=== PATIENT | male | born 1975 | race Caucasian/White ===

== ENCOUNTER 2018-08-04 08:51 | Emergency (ER) | payer MEDICAID, SELFPAY ==
[2018-08-04 09:02] VITALS: BP 150/86; PULSE 65; RESP 16; TEMP 36.5; O2SAT 99
[2018-08-04 09:06] LABS: Bilirubin Negative (Negative); Blood Moderate (Negative); Clarity Clear; Glucose 500 mg/dL (Negative); Ketones Negative (Negative); Leukocyte Esterase Negative (Negative); Nitrite Negative (Negative); Specific Gravity 1.015 (1.005-1.025); Urobilinogen 0.2 EU/dL (Up TO 0.2); pH 5.5 (5-8)
--- NOTE | 2018-08-04 09:10 | DI.RAD_ITS ---
SYMPTOM/DIAGNOSIS: ? KIDNEY STONE, PAIN KUB: No priors. The right kidney is largely obscured by overlying bowel but no obvious renal stones are present. There is an ovoid, 4 mm. density projected over the left sacrum. This may represent a stone versus an osseous or enteric calcification. Tiny calcifications are seen in the pelvis. These may represent phleboliths. Distal ureteral or bladder stones cannot be excluded. The bones are intact. The bowel gas pattern is nonspecific. IMPRESSION: Equivocal examination as described above. Calcifications seen overlying the left sacrum and in the pelvis. While these may represent ureteral or bladder stones, phleboliths cannot be excluded. If there is continued concern, ultrasound or renal colic CT may be obtained. The findings were discussed with Dr Lamar of the ER on the date of the examination.
--- NOTE | 2018-08-04 09:17 | W.ED.GENAD ---
Discharge Plan Disposition Patient Disposition: HOME Condition: Good Discharge Details Chief Complaint: Urinary Clinical Impression: Hematuria, Urolithiasis Primary Care Provider: Brandi Green ED Provider: Ant Lamar Home Meds and New Rx's Prescriptions: New tamsulosin 0.4 mg capsule 0.4 mg PO DAILY Qty: 3 RF: 0 No Action loratadine 10 MG tablet,disintegrating 10 mg PO DAILY Qty: 1 RF: 0 metformin [Glucophage] 1,000 MG tablet 500 mg PO BID RF: 0 ranitidine HCl [Zantac] 150 MG tablet 150 mg PO PRN PRNRF: 0 ibuprofen 800 MG tablet 800 mg PO Q8H PRN PRNQty: 20 RF: 1 Discharge Instructions Instructions: Kidney Stones (ED), Hematuria (ED) Additional Instructions: Please take the tamsulosin once daily as directed, please use the strainer for your urine as directed. If you notice any worsening of your symptoms, or any new symptoms such as vomiting, diarrhea, fever, chills, shortness of breath, chest pain, numbness, weakness, or fainting , please return immediately to the emergency department for reevaluation. Please follow up with your primary care provider as soon as possible for reassessment and reevaluation. As always, it was a pleasure participating in your medical care today. Referrals: Brandi Green [Primary Care Provider] - Medical Decision Making This is a pleasant 43-year-old male with no significant past medical history who presents today for evaluation of hematuria and mild dysuria for the last day associated with a very mild bilateral flank pain. Right now the patient states that he is pain-free. His hematuria certainly did concern him. He had symptoms like this in the past when he had a urinary tract infection years ago. He denies any irritation to the urethra recently, he denies any blood thinner use. Exam demonstrates an unremarkable abdominal exam, nontender to bilaterally descended testicles, normal cremasteric reflex. No significant flank or CVA tenderness. Currently CT scan is unavailable for the next 7 hours, I do feel that the patient signs and symptoms are concerning for kidney stone versus mild UTI. Bedside ultrasound reveals no evidence of hydronephrosis of the kidneys. I did give the patient the option of transfer for CT scan of the abdomen however he would like to hold off for the time being. We will get plain film of the abdomen to evaluate for any large kidney stone. Urine and basic labs to evaluate for signs of significant infection. 10 AM Patient's laboratory work-up has returned, lab results are notably benign. No evidence of significant renal dysfunction, electrolyte abnormality, or other concern. We did order lipid panel and hemoglobin A1c as well as C-peptide and urine microalbumin, as were ordered outpatient. The patient was requesting these to be drawn here. We did discuss with him that this may cause a increase incurred cost, however the patient would like to only be drawn once, and is still requesting the labs. I did discuss the findings of his lipid panel as well as his A1c, as well as the importance of following up closely with his PCP in regards to this. Urinalysis does show signs of mild to moderate hematuria, nitrite negative, leukoesterase negative, signs and symptoms correlate well with mild hematuria, with no evidence of significant infection with no evidence of bacteria. X-ray of the abdomen per Dr. Sterling of radiology shows no significant concerning process, there are small calcifications noted in the pelvic region which may be evidence of small 4 mm stone. This would correlate well with his clinical picture and urinalysis. Signs and symptoms clinically correlate with mild urolithiasis. No clinical evidence of urinary tract infection requiring antibiotics or emergent urology evaluation. Pain is notably stable. We will give the patient a dose of tamsulosin here, recommend continued NSAIDs for home use, as well as prompt follow-up with his PCP. We discussed red flags which to return immediately, and the patient understands. I have extensively reviewed the treatment plan and discharge instructions with the patient and their family. I have addressed all patient concerns at this time. The patient and family was made aware of what symptoms to monitor for that would warrant a return to the emergency department. Discussed the plan with the patient and family, they demonstrate verbal understanding and agreement with our assessment and plan at this time. HPI General Date/Time Provider Initiated Documentation: 08/04/18 09:01. HPI Narrative: This is a 43-year-old male with no significant past medical history who presents today for evaluation of hematuria, mild urinary pain/dysuria, slight increase in urinary frequency. Patient states that symptoms began yesterday. Is a small amount of blood noted in his urine, there is been mild burning sensation with urinary movements. This morning he did notice a small amount of flank pain which he describes as bilateral, very mild and just aching in nature. Currently he denies any severe pain. He denies any abdominal pain, or pelvic pain. He denies any significant testicular pain. He does have a history of chronic testicular pain but states that this is not present today. He denies any evidence of hematospermia, recent exploration of the urethra during intercourse or other behaviors. He does state that he did have a urinary tract infection years ago which did have some mild hematuria at that time. He denies any history of kidney stones. He denies any family history of AAA, aortic dissection, recent abdominal surgeries. He has no other complaints at this time. She denies any other modifying factors. Past medical history is positive for diabetes mellitus. He is on no blood thinners. He denies any history family history of bladder cancer. Related Data Home Medications Medication Instructions Recorded Confirmed ibuprofen 800 mg PO Q8H PRN PRN #20 tablet 06/04/13 08/04/18 metformin [Glucophage] 500 mg PO BID 06/04/13 08/04/18 ranitidine HCl [Zantac] 150 mg PO PRN PRN 06/04/13 08/04/18 loratadine 10 mg PO DAILY #1 tab-cap 07/16/13 08/04/18 tamsulosin 0.4 mg PO DAILY #3 cap 08/04/18 Previous Rx's Medication Instructions Recorded ibuprofen 800 mg PO Q8H PRN PRN #20 tablet 06/04/13 tamsulosin 0.4 mg PO DAILY #3 cap 08/04/18 Allergies Allergy/AdvReac Type Severity Reaction Status Date / Time pseudoephedrine HCl Allergy Intermediate Unverified 08/04/18 09:11 [From Sudafed] naproxen AdvReac Mild Unverified 08/04/18 09:11 General Stated Complaint: Urinary DANIELA: 4 Review of Systems Review of Systems All systems reviewed & are unremarkable except as noted in HPI and below PFSH Social History Smoking/Tobacco Use Status: Never Drug use: Never Exam Narrative Exam Narrative: 1.Const: Well-nourished, Well-developed, appearing stated age 2.Eyes: PERRL, no conjunctival injection, and symmetrical lids. 3.ENT: Atraumatic external nose and ears. Moist MM. Neck: Symmetric, trachea midline, No thyromegaly. 4.CVS: +S1/S2, No murmurs or gallops. Peripheral pulses 2+ and equal in all extremities. Brisk capillary refill in all extremities. 5.RESP: Unlabored respiratory effort. Clear to auscultation bilaterally. No wheezes rales or rhonchi 6.GI: Soft, Nontender/Nondistended, No hepatosplenomegaly. No guarding or rebound. No significant flank or CVA tenderness. No pain at McBurney's point, negative Martin sign. Genital exam demonstrated bilaterally descended testicles, normal cremasteric reflex bilaterally. No testicular tenderness. No penile tenderness or discharge. Penis is circumcised. No evidence of hernia. 7.MSK: Normocephalic/Atraumatic, Extremities w/o deformity or ttp No cyanosis or clubbing, Normal movement of all extremities. 8.Skin: Warm, Dry. No rashes or lesions. 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 Sensation grossly intact, no focal neurologic deficits. 10.Psych: (AAO) x3. Appropriate mood and affect Course Vital Signs Temperature 36.5 C 08/04/18 09:02 Pulse 65 08/04/18 09:02 Respiratory Rate 16 08/04/18 09:02 Blood Pressure 150/86 H 08/04/18 09:02 Pulse Oximetry 99 08/04/18 09:02 Temperature 36.5 C 08/04/18 09:02 Temperature Source Skin 08/04/18 09:02 Pulse 65 08/04/18 09:02 Respiratory Rate 16 08/04/18 09:02 Respiratory Effort Non-Labored 08/04/18 09:02 Blood Pressure 150/86 H 08/04/18 09:02 Blood Pressure Position Sitting 08/04/18 09:02 Pulse Oximetry 99 08/04/18 09:02 Oxygen Delivery Method Room Air 08/04/18 09:02 Oxygen Flow Rate 0 08/04/18 09:02 Pain Level 1 08/04/18 09:02 Lab/Test Results Lab/Test Results: Laboratory Tests Range/Units 08/04/18 08:56 Urine Color (Yellow) Yellow Urine Clarity Clear Urine pH (5-8) 5.5 Ur Specific Warner (1.005-1.025) 1.015 Urine Protein (Negative) mg/dL Negative Urine Ketones (Negative) mg/dL Negative Urine Blood (Negative) Moderate H Urine Nitrite (Negative) Negative Urine Bilirubin (Negative) Negative Urine Urobilinogen (Up TO 0.2) EU/dL 0.2 Ur Leukocyte Esterase (Negative) Negative Urine Glucose (Negative) mg/dL 500 H
[2018-08-04 09:18] LABS: Bacteria Negative HPF (Negative); C & S Indicated? No; Casts Negative LPF (Negative); Crystals Negative HPF (Negative); Epithelial Cells Rare HPF (Negative); Mucus Negative (Negative); RBC 20-50 (0-2)
[2018-08-04 09:36] LABS: Absolute Monocyte Count 0.32 k/cumm (0.11-0.7); HCT 46.9 % (40.0-50.0); HGB 16.3 g/dL (13.5-17.5); Mean Corp. HGB Concentration 34.8 g/dL (32.0-36.0); Mean Corpuscular Hemoglobin 27.2 pg (27.0-33.0); Mean Corpuscular Volume 78.3 fL (80-95); Mean Platelet Volume 9.9 fL (8.0-11.0); Platelet Count 219 x1000/uL (130-400); RBC 5.99 m/cumm (4.50-6.00); RBC Distribution Width 14.9 % (11.8-14.1); White Blood Cell Count 4.56 k/cumm (4.4-10.8)
[2018-08-04 09:44] LABS: Anion Gap 10.6 mmol/L (3-11); BUN 14 mg/dL (7-18); CO2 27.4 mmol/L (21.0-32.0); CREATININE 0.86 mg/dL (0.70-1.30); Calcium 9.1 mg/dL (8.5-10.1); Chloride 99 mmol/L (98-107); Cholesterol 165 mg/dL (50-200); Glucose 252 mg/dL (70-100); HDL Cholesterol 32 mg/dL (40-60); LDL CHOLESTEROL 94 mg/dL (<100); Potassium 3.9 mmol/L (3.5-5.1); Sodium 137 mmol/L (136-145); Triglyceride 331 mg/dL (30-150)
[2018-08-04 09:48] LABS: Hemoglobin A1C 8.6 % (4.5-6.2)
[2018-08-04] MEDS: Acetaminophen 500 MG TAB (09:49)
[2018-08-04 10:04] LABS: Absolute Neutrophil Count 2.69 k/cumm (1.2-6.7)
[2018-08-04 10:05] LABS: Absolute Lymphocyte Count 1.41 k/cumm (1.2-3.4)
[2018-08-04 10:06] LABS: Diff Comment Manual Differential; RBC Morphology Normal
[2018-08-04] MEDS: Tamsulosin 0.4 MG CAPCR PO (10:08)
[2018-08-05 14:56] LABS: C-Peptide 4.2 ng/mL (1.1 - 4.4)
== END 2018-08-04 10:16 | disposition home or self-care (01) ==
PROVIDERS: Emergency Provider Student in an Organized Health Care Education/Training Program; PCP Family Medicine
DX: R31.9 Hematuria, unspecified (principal); N20.9 Urinary calculus, unspecified
CPT/HCPCS: 36415; 80048; 80061; 83721; 99284; 74018; 81003; 81015; 83036; 84681; 85025

== ENCOUNTER 2018-08-21 08:02 | Outpatient (CLI) | payer MEDICAID, SELFPAY ==
[2018-08-21 09:29] LABS: Anion Gap 11.2 mmol/L (3-11); BUN 19 mg/dL (7-18); CO2 24.8 mmol/L (21.0-32.0); CREATININE 0.88 mg/dL (0.70-1.30); Chloride 101 mmol/L (98-107); Cholesterol 169 mg/dL (50-200); Glucose 246 mg/dL (70-100); HDL Cholesterol 30 mg/dL (40-60); LDL CHOLESTEROL 101 mg/dL (<100); Potassium 4.4 mmol/L (3.5-5.1); Sodium 137 mmol/L (136-145); Triglyceride 277 mg/dL (30-150)
[2018-08-24 12:34] LABS: C-Peptide 4.3 ng/mL (1.1 - 4.4)
== END 2018-08-21 08:22 ==
PROVIDERS: PCP Family Medicine; Visit Provider Internal Medicine Endocrinology, Diabetes & Metabolism
DX: E11.65 Type 2 diabetes mellitus with hyperglycemia (principal); E78.2 Mixed hyperlipidemia
CPT/HCPCS: 36415; 80048; 80061; 83721; 82043; 82570; 84681

== ENCOUNTER 2018-11-28 09:34 | Outpatient (CLI) | payer MEDICAID, SELFPAY ==
[2018-11-29 10:25] LABS: Hemoglobin A1C 7.7 % (4.5-6.2)
[2018-11-30 16:20] LABS: Fructosamine 261 mcmol/L (200 - 285)
== END 2018-11-28 09:54 ==
PROVIDERS: PCP Family Medicine; Visit Provider Internal Medicine Endocrinology, Diabetes & Metabolism
DX: E11.65 Type 2 diabetes mellitus with hyperglycemia (principal)
CPT/HCPCS: 36415; 82985; 83036

== ENCOUNTER 2019-05-20 08:15 | Outpatient (CLI) | payer MEDICAID, SELFPAY ==
[2019-05-20 10:31] LABS: Hemoglobin A1C 8.5 % (3.8-5.6)
[2019-05-21 16:56] LABS: Fructosamine 301 mcmol/L (200 - 285)
== END 2019-05-20 08:35 ==
PROVIDERS: PCP Family Medicine; Visit Provider Internal Medicine Endocrinology, Diabetes & Metabolism
DX: E11.65 Type 2 diabetes mellitus with hyperglycemia (principal)
CPT/HCPCS: 36415; 82985; 83036

== ENCOUNTER 2020-04-06 03:08 | Outpatient (CLI) | payer MEDICAID, SELFPAY ==
[2020-04-06 08:18] LABS: Hemoglobin A1C 9.6 % (<5.7)
[2020-04-08 09:27] LABS: Fructosamine 334 mcmol/L (200 - 285)
== END 2020-04-06 03:28 ==
PROVIDERS: PCP Family Medicine; Visit Provider Internal Medicine Endocrinology, Diabetes & Metabolism
DX: E11.65 Type 2 diabetes mellitus with hyperglycemia (principal)
CPT/HCPCS: 36415; 82985; 83036

== ENCOUNTER 2020-07-21 21:21 | Observation (INO) | payer MEDICAID, SELFPAY ==
[2020-07-21] VITALS (13 sets, daily range): BP systolic 144–173; BP diastolic 76–95; PULSE 74–86; RESP 16–28; TEMP 36.4–36.7; O2SAT 95–99
--- NOTE | 2020-07-21 21:25 | ED.GENADUL_ITS ---
Discharge Plan Disposition Patient Disposition: [facility] INPATIENT Condition: Stable Discharge Details Primary Care Provider: Brandi Green ED Provider: Galina Sosa Home Meds and New Rx's Prescriptions: No Action loratadine 10 MG tablet,disintegrating 10 mg PO DAILY Qty: 1 RF: 0 metformin [Glucophage] 1,000 MG tablet 1,000 mg PO BID RF: 0 ibuprofen 800 MG tablet 800 mg PO Q8H PRN PRNQty: 20 RF: 1 glipizide 10 mg tablet extended release 24hr 10 mg PO DAILY AM RF: 0 Lantus Solostar U-100 Insulin 100 unit/mL (3 mL) insulin pen 50 unit SUBCUT HS RF: 0 Medical Decision Making Patient is a pleasant 45 year old male who presents for evaluation after possibly taking an extra dose of is glipizide. He states that he takes 10mg of extended release glipizide in the morning and thinks he may have taken another this evening. Reports BGL 307 at home prior to arrival. No symptoms at this time. Contacted poison control. They are concerned for potential hypoglycemia and advised over night admission with Q1hr checks. Advised to treat as needed. If patient needs multiple treatments for his hypoglycemia may consider octreotide. Patient denies any symptoms at this time. Exam is normal. His current glucose is 250. Consulted with Dr. Charles who agrees to admission. Patient will be placed in the ICU given the frequency of glucose check. Baseline labs were obtained significant for glucose of 271. Patient is in agreement with admission. All his questions and HPI General Mode of arrival: ambulatory . Date/Time Provider Initiated Documentation: 07/21/20 21:22 . Limitations to Documentation: no limitations . Information obtained by: patient and RN notes reviewed . History of Present Illness 45 year old M presents to the emergency department with the chief complaint of accidentally took extra dose of ER glipizide, Patient started experiencing this hour(s) (1999) Patient notes no other symptoms.. Patient did receive the following treatments prior to arrival, none Related Data Home Medications Medication Instructions Recorded Confirmed ibuprofen 800 mg PO Q8H PRN PRN #20 tablet 06/04/13 07/21/20 metformin [Glucophage] 1,000 mg PO BID 06/04/13 07/21/20 loratadine 10 mg PO DAILY #1 tab-cap 04/11/14 04/16/21 glipizide 10 mg PO DAILY AM 07/21/20 07/21/20 insulin glargine [Lantus Solostar 50 unit SUBCUT HS 07/21/20 07/21/20 U-100 Insulin] Previous Rx's Medication Instructions Recorded ibuprofen 800 mg PO Q8H PRN PRN #20 tablet 06/04/13 Allergies Allergy/AdvReac Type Severity Reaction Status Date / Time pseudoephedrine HCl Allergy Intermediate Unverified 08/04/18 09:11 [From Sudafed] naproxen AdvReac Mild Unverified 08/04/18 09:11 General DANIELA: 4 Review of Systems Constitutional Constitutional: Reports as per HPI, Denies chills, Denies fever(s) and Denies headache(s) ENT Ears, Nose, Mouth, and Throat: Denies headache(s) Cardiovascular Cardiovascular: Reports as per HPI, Denies chest pain and Denies dyspnea Respiratory Respiratory: Reports as per HPI, Denies cough and Denies dyspnea Neurologic Neurologic: Denies headache(s) [facility] Social History Smoking/Tobacco Use Status: Never Smoking risk assessment performed?: Yes Alcohol Intake: never Drug use: Never Do you feel safe at home: Yes Do you feel safe in your relationship?: Yes Exam Const General: cooperative, healthy appearing, comfortable and no acute distress Nutritional Appearance: well nourished and obese Orientation: alert and awake Resp Effort & Inspection: normal respiratory effort, able to speak in complete sentences and no respiratory distress Auscultation: clear to auscultation bilaterally Cardio Rate: regular rate Rhythm: regular rhythm Heart Sounds: S1 normal and S2 normal Skin General skin exam: no rashes or lesions noted Neuro General: patient alert and patient awake Cognition: normal cognition Speech: speech normal Gait: normal gait Psych Appearance: grossly normal and well kempt Mental Status: mental status grossly normal Speech and Movement: speech and movement normal
[2020-07-21 21:56] LABS: Abs Immature Grans 0.08 10^3/uL (0.0-0.06); Absolute Basophil Count 0.05 10^3/uL (0.0-0.2); Absolute Eosinophil Count 0.17 10^3/uL (0.0-0.7); Absolute Lymphocyte Count 1.95 10^3/uL (1.2-3.4); Absolute Monocyte Count 0.37 10^3/uL (0.1-0.8); Absolute Neutrophil Count 3.36 10^3/uL (1.2-6.7); Basophils % 0.8; Eosinophils % 2.8; HCT 47.6 % (40.0-50.0); HGB 16.1 g/dL (13.5-17.5); Immature Grans % 1.3; Lymphocytes % 32.6; MCH 27.1 pg (27.0-33.0); MCHC 33.8 % (32.0-36.0); MPV 9.8 fL (8.0-11.0); Monocytes % 6.2; Neutrophils % 56.3; Nucleated RBC 0 %; Platelet Count 221 10^3/uL (130-400); RBC 5.95 10^6/uL (4.36-5.78); RDW-SD 40.2 fL; WBC 5.98 10^3/uL (4.4-10.8)
[2020-07-21 22:11] LABS: ALT 49 U/L (16-63); AST 17 U/L (15-37); Albumin 3.9 g/dL (3.4-5.0); Alkaline Phosphatase 102 U/L (46-116); BUN 19 mg/dL (7-18); Bilirubin, Total 0.5 mg/dL (0.2-1.0); CREATININE 0.9 mg/dL (0.70-1.30); Calcium 9.4 mg/dL (8.5-10.1); Chloride 102 mmol/L (98-107); Glucose 271 mg/dL (74-106); Potassium 4.1 mmol/L (3.5-5.1); Sodium 138 mmol/L (136-145); Total Protein 7.3 g/dL (6.4-8.2)
[2020-07-21 22:13] LABS: Source Nasal/Nares
[2020-07-22] VITALS (12 sets, daily range): BP systolic 139–172; BP diastolic 80–92; PULSE 77–90; RESP 13–24; TEMP 36.5–36.7; O2SAT 92–98
--- NOTE | 2020-07-22 00:36 | HPE_ITS ---
Date of service: 07/22/20 Time of Service: 00:36 Assessment and Plan Assessment and plan (1) Accidental medication overdose: Status: Acute Assessment and plan: Inadvertent ingestion of one extra dose of glipizide ER 10 mg. Patient is clinically stable and probably could have been monitored at home w/ self glucose checks and monitoring by his spouse. Patient's autonomic nervous system is still sensitive to symptoms of hypoglycemia and it would be highly unlikely that he would not be able to manage this. However, since poison control has been called twice on his case and they have advised overnight monitoring w/ serial glucose readings, the patient will be observed overnight. Peak effect for extended release glipizide is 8 to 12 hr. Qualifiers: Encounter type: initial encounter Qualified Code(s): T50.901A - Poisoning by unspecified drugs, medicaments and biological substances, accidental (unintentional), initial encounter (2) Diabetes mellitus type 2, controlled, without complications: Status: Acute Assessment and plan: serial glucose monitoring; hold all diabetic meds while hospitalized overnight. 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 male w/ type 2 DM w/ poor control (latest A1C 9.6%) who took an extra glipizide ER 10 mg around 8 pm (he usually takes his medicine in the a.m.). He has been having arthritic pains in his toes (bunions) and though that it was his ibuprofen. He called poison control who advised him to come to the ER for evaluation. His glucose at home prior to arriving in the ER was 307 mg/dL. Galina Sosa from the ER called poison control and because of concern for potential hypoglycemia at home, they advised overnight hospitalization for q1h glucose checks and if significant hypoglycemia developes to treat w/ octreotide. Patient states that he has had DM for 5 or 6 yrs and has not had a hypoglycemia spell for over 2 yrs. He states that in fact his PCP has had trouble controlling his elevated glucose and he has been referred to a diabetic specialist at [facility] in [facility] [place]. He says that he can recognized when his glucose goes low as he will feel sweaty and nervous. The last time this happened was over two years ago when his glucose got down in the 60's at night. His DM is currently being treated w/ glipizide ER 10 mg daily, metformin 1000 mg bid and Lantus 50 units qHS. He has had no complications from his DM so far. Review of Systems All systems reviewed & are unremarkable except as noted in HPI and below Constitutional Constitutional: Reports as per HPI Eyes Eyes: Reports system reviewed and no additional complaints, except as documented ENT Ears, Nose, Mouth, and Throat: Reports system reviewed and no additional complaints, except as documented Cardiovascular Cardiovascular: Reports system reviewed and no additional complaints, except as documented Respiratory Respiratory: Reports system reviewed and no additional complaints, except as documented Gastrointestinal Gastrointestinal: Reports system reviewed and no additional complaints, except as documented Genitourinary Genitourinary: Reports system reviewed and no additional complaints, except as documented Musculoskeletal Musculoskeletal: Reports system reviewed and no additional complaints, except as documented Integumentary/Breasts Skin/Breast: Reports system reviewed and no additional complaints, except as documented Neurologic Neurologic: Reports system reviewed and no additional complaints, except as documented Endocrine Endocrine: Reports system reviewed and no additional complaints, except as documented Hematologic/Lymphatic Hematologic/Lymphatic: Reports system reviewed and no additional complaints, except as documented Allergic/Immunologic Allergic/Immunologic: Reports system reviewed and no additional complaints, except as documented [facility] Medical History (Updated 07/22/20 @ 08:33 by Gideon Long) Diabetes mellitus type 2, controlled, without complications Family History (Updated 07/22/20 @ 08:27 by Gideon Long) Father Diabetes Heart disease in his early 50's d/t [place] Mother Diabetes Sister Diabetes Social History Smoking/Tobacco Use Status: Never Smoking risk assessment performed?: Yes Alcohol Intake: never Drug use: Never Do you feel safe at home: Yes Do you feel safe in your relationship?: Yes Meds Allergies and Home Medications Allergies Allergy/AdvReac Type Severity Reaction Status Date / Time pseudoephedrine HCl Allergy Intermediate Unverified 08/04/18 09:11 [From Sudafed] naproxen AdvReac Mild Unverified 08/04/18 09:11 Home Medications Medication Instructions Recorded Confirmed Type ibuprofen 800 mg PO Q8H PRN PRN #20 tablet 06/04/13 07/21/20 Rx metformin [Glucophage] 1,000 mg PO BID 06/04/13 07/21/20 History loratadine 10 mg PO DAILY #1 tab-cap 07/16/13 07/21/20 History glipizide 10 mg PO DAILY AM 07/21/20 07/21/20 History insulin glargine [Lantus Solostar 50 unit SUBCUT HS 07/21/20 07/21/20 History U-100 Insulin] Exam Narrative Exam Narrative: Obese white male lying in bed in semi-morgan position; no distress; pleasant and alert and oriented x 3 HEENT unremarkable Neck supple w/out JVD, LN, or thyromegaly; normal carotid pulses Lungs are clear to auscultation and percussion Heart is regular rate and rhythm w/out murmur, rub or gallops, PMI is at apex and w/out thrill Abdomen is obese, soft, nontender w/out organomegaly, bruits Extremities w/out edema; normal pedal pulses; there is a paucity of hair over dorsum of his feet Neuro exam is grossly intact w/ normal motor and grossly normal sensory exam ( I did not test for fine vibratory nor fine sensory w/ monofilament) Rectal and genitalia exam was deferred and not clinically indicated. Skin is w/out rashes Results Labs Result diagrams: 07/21/20 21:50 07/22/20 06:30 Labs: Laboratory Results - last 24 hr 07/21/20 07/21/20 07/21/20 21:50 21:50 22:10 WBC 5.98 RBC 5.95 H Hgb 16.1 Hct 47.6 MCV 80.0 MCH 27.1 MCHC 33.8 RDW 14.0 Plt Count 221 MPV 9.8 Immature Gran % 1.3 Neutrophils % 56.3 Lymphocytes % 32.6 Monocytes % 6.2 Eosinophils % 2.8 Basophils % 0.8 Nucleated RBC % 0 Absolute Neutrophils 3.36 Absolute Lymphocytes 1.95 Absolute Monocytes 0.37 Absolute Eosinophils 0.17 Absolute Basophils 0.05 Sodium 138 Potassium 4.1 Chloride 102 Carbon Dioxide 26.0 Anion Gap 10.0 BUN 19 H Creatinine 0.9 Estimated GFR/1.73 m2 >= 60.00 Glucose 271 H Calcium 9.4 Total Bilirubin 0.5 AST 17 ALT 49 Alkaline Phosphatase 102 Total Protein 7.3 Albumin 3.9 COVID-19 Source Nasal/nares Last Vital Signs Temp 36.4 C L 07/21/20 23:03 Pulse 80 07/22/20 00:01 Resp 13 07/22/20 00:01 BP 139/92 H 07/22/20 00:01 Pulse Ox 96 07/22/20 00:01 COVID-19 Screening Have you, or household traveled for leisure in last 14 days?: No Had IN PERSON contact w/suspected or confirmed C-19 person: No
[2020-07-22 06:56] LABS: Anion Gap 11.7 mmol/L (3-11); BUN 17 mg/dL (7-18); CO2 23.3 mmol/L (21.0-32.0); CREATININE 0.8 mg/dL (0.70-1.30); Calcium 8.8 mg/dL (8.5-10.1); Chloride 104 mmol/L (98-107); Glucose 225 mg/dL (74-106); Potassium 3.8 mmol/L (3.5-5.1); Sodium 139 mmol/L (136-145)
--- NOTE | 2020-07-22 08:42 | PDOC.CMIN ---
- If Service Date Differs Date of service: 07/22/20 Time of Service: 08:42 Care Management Initial Assess REASON FOR HOSPITALIZATION:: accidental medication overdose PAST MEDICAL HISTORY/PAST SURGICAL HISTORY:: Medical History (Updated 07/22/20 @ 08:33 by Gideon Long). Diabetes mellitus type 2, controlled, without complications PREVIOUS FUNCTIONAL STATUS/SOCIAL/FAMILY SUPPORTS:: Silverio lives in [place], [place] with his Renee. ADVANCE DIRECTIVES:: none on file Has patient been provided with info about the portal/API?: Yes Did the patient sign up for the portal?: Yes (previously) CODE STATUS:: Full Code INSURANCE COVERAGE / FINANCIAL ISSUES:: Medicaid PRIMARY CARE PHYSICIAN:: Brandi Green POTENTIAL DISCHARGE NEEDS:: follow up with PCP and plan of care PATIENT/FAMILY EDUCATION NEEDS:: Review of discharge instructions including activity, medications and follow up, limitations, Ask Me Three TRANSPORTATION:: via private vehicle with family PLAN:: Silverio will be discharged home with no new services. He will follow up with his PCP and plan of care and transport with family.
--- NOTE | 2020-07-22 08:46 | DSE_ITS ---
Date of service: 07/22/20 Time of Service: 08:46 DS: Diagnosis Discharge Diagnosis (1) Accidental medication overdose: Status: Resolved (2) Diabetes mellitus type 2, controlled, without complications: Status: Acute Discharge Plan Disposition Patient Disposition: HOME Condition: Stable Discharge Details Reason For Visit: GLYPIZIDE OVERDOSE Admit Date/Time: 07/21/20 22:00 Admit Provider: Gideon Long Attending Provider: Gideon Long Primary Care Provider: Brandi Green Hospital Course Hospital Course: See admission H&P for details. Patient inadvertently took an extra dose of glipizide ER 10 mg around 8 pm on the day of admission and was advised by poison control to come to the ER for evaluation. ER staff called poison control and they advised overnight hospitalization w/ serial glucose monitoring q1h. Blood glucose prior to arrival was 307 and finger stick glucose in the ER department was 250 w/ a lab drawn glucose of 271. Overnight he had no hypoglycemia spells. His lowest glucose was 159 mg/dL at 02:35 am for which he had a snack of peanut butter and sohail crackers. His subsequent glucose has been 192 to 213. He has eaten breakfast and has no symptoms of hypoglycemia. He is advised to not take his metformin or his glipizide this morning but may resume his evening dose of Lantus tonight. Home Meds and New Rx's Prescriptions: Continued loratadine 10 MG tablet,disintegrating 10 mg PO DAILY Qty: 1 RF: 0 metformin [Glucophage] 1,000 MG tablet 1,000 mg PO BID RF: 0 ibuprofen 800 MG tablet 800 mg PO Q8H PRN PRNQty: 20 RF: 1 glipizide 10 mg tablet extended release 24hr 10 mg PO DAILY AM RF: 0 Lantus Solostar U-100 Insulin 100 unit/mL (3 mL) insulin pen 50 unit SUBCUT HS RF: 0 Discharge Instructions Instructions: Hypoglycemia in a Person with Diabetes (DC) Additional Instructions: Do not take your glipizide today and do not take your metformin this morning. Continue to monitor your glucose readings throughout the day (a minimum of every 4 to 6h). You may resume your Lantus tonight and resume your metformin and glipizide tomorrow. Activity:: Activity as Tolerated Equipment/Supplies:: No Equipment Needed Diet:: Carb Counting Discharge Orders Discharge Orders: Discharge Order (Routine); Ordered 07/22/20 Ordered By: Gideon Long Discharge Data Discharge Date/Time-TO BE ENTERED AT DEPARTURE: 07/22/20 08:38 DS: Summary Time Spent with Patient providing and/or coordinating discharge services: Less than 30 minutes Specific discharge activities: discussion of glucose monitoring and how to handle hypoglycemia Status at Discharge Functional status at discharge: independent ambulation Overall status at discharge: patient is back to baseline Mental Status: mental status grossly normal Speech and Movement: speech and movement normal Mood: congruent mood Affect: normal affect Exam Narrative Exam Narrative: Obese white male lying in bed in semi-morgan position; no distress; pleasant and alert and oriented x 3 HEENT unremarkable Neck supple w/out JVD, LN, or thyromegaly; normal carotid pulses Lungs are clear to auscultation and percussion Heart is regular rate and rhythm w/out murmur, rub or gallops, PMI is at apex and w/out thrill Abdomen is obese, soft, nontender w/out organomegaly, bruits Extremities w/out edema; normal pedal pulses; there is a paucity of hair over dorsum of his feet Neuro exam is grossly intact w/ normal motor and grossly normal sensory exam ( I did not test for fine vibratory nor fine sensory w/ monofilament) Rectal and genitalia exam was deferred and not clinically indicated. Skin is w/out rashes Psych Mental Status: mental status grossly normal Speech and Movement: speech and movement normal Mood: congruent mood Affect: normal affect DS: Data Vitals/I&O Vitals and I&O: Vital Signs Temperature 36.5 C 07/22/20 07:30 Temperature Source Temporal Artery Scan 07/22/20 07:30 Pulse 80 07/22/20 07:32 Pulse 77 07/22/20 07:32 Respiratory Rate 17 07/22/20 07:32 Respiratory Effort 07/22/20 07:30 Respiratory Depth Normal 07/22/20 07:30 Respiratory Pattern Normal 07/22/20 07:30 Blood Pressure 150/80 H 07/22/20 07:32 Blood Pressure Mean 99 07/22/20 07:32 Blood Pressure Position Supine 07/22/20 07:30 Pulse Oximetry 96 07/22/20 07:32 Oxygen Delivery Method Room Air 07/22/20 07:30 Oxygen Flow Rate 0 07/22/20 07:30 Pain Level 0 07/22/20 08:39 Intake & Output 07/21/20 07/21/20 07/22/20 11:59 23:59 11:59 Intake Total 280 / 280 Output Total 800 / 800 Balance -520 / -520 Weight 115.666 kg 117.7 kg Intake: Oral 280 / 280 Output: Urine 800 / 800 Other: Urine Color Yellow Urine Appearance Clear Urine Odor Normal Comment using urinal at bedside Voiding Methods Urinal Data Completed and Pending Labs on day of discharge: Labs from last 24 hours 07/22/20 07/21/20 07/21/20 06:30 22:10 21:50 WBC 5.98 RBC 5.95 H Hgb 16.1 Hct 47.6 MCV 80.0 MCH 27.1 MCHC 33.8 RDW 14.0 Plt Count 221 MPV 9.8 Immature Gran % 1.3 Neutrophils % 56.3 Lymphocytes % 32.6 Monocytes % 6.2 Eosinophils % 2.8 Basophils % 0.8 Nucleated RBC % 0 Absolute Neutrophils 3.36 Absolute Lymphocytes 1.95 Absolute Monocytes 0.37 Absolute Eosinophils 0.17 Absolute Basophils 0.05 Sodium 139 Potassium 3.8 Chloride 104 Carbon Dioxide 23.3 Anion Gap 11.7 H BUN 17 Creatinine 0.8 Estimated GFR/1.73 m2 >= 60.00 Glucose 225 H Calcium 8.8 Total Bilirubin AST ALT Alkaline Phosphatase Total Protein Albumin COVID-19 Source Nasal/nares SARS-CoV-2 (PCR) Pending 07/21/20 21:50 WBC RBC Hgb Hct MCV MCH MCHC RDW Plt Count MPV Immature Gran % Neutrophils % Lymphocytes % Monocytes % Eosinophils % Basophils % Nucleated RBC % Absolute Neutrophils Absolute Lymphocytes Absolute Monocytes Absolute Eosinophils Absolute Basophils Sodium 138 Potassium 4.1 Chloride 102 Carbon Dioxide 26.0 Anion Gap 10.0 BUN 19 H Creatinine 0.9 Estimated GFR/1.73 m2 >= 60.00 Glucose 271 H Calcium 9.4 Total Bilirubin 0.5 AST 17 ALT 49 Alkaline Phosphatase 102 Total Protein 7.3 Albumin 3.9 COVID-19 Source SARS-CoV-2 (PCR) [facility] Medical History (Updated 07/22/20 @ 08:46 by Gideon Long) Diabetes mellitus type 2, controlled, without complications Family History (Updated 07/22/20 @ 08:27 by Gideon Stranathan) Father Diabetes Heart disease in his early 50's d/t [place] Mother Diabetes Sister Diabetes Social History Smoking/Tobacco Use Status: Never Smoking risk assessment performed?: Yes Alcohol Intake: never Drug use: Never Do you feel safe at home: Yes Do you feel safe in your relationship?: Yes
--- NOTE | 2020-07-22 16:15 | CMPROGNOTE_ITS ---
- If Service Date Differs Date of service: 07/22/20 Time of Service: 16:15 Care Management Progress Note Sam is a 45 year old man admitted to [facility] on 07/21/20 due to an accidental overdose of glipizide. He was monitored closely in the ICU and was discharged early this morning shortly after 8:30 am. He will follow up with his PCP and discharge plan of care. Silverio transported home via priavte vehicle with his .
[2020-07-22 23:03] LABS: COVID-19 PCR Negative (Negative)
== END 2020-07-22 08:38 | disposition home or self-care (01) ==
LOC: ER 22:48 → ICU 22:54
PROVIDERS: Admitting Provider Internal Medicine; Emergency Provider Physician Assistant; PCP Family Medicine; Visit Provider Internal Medicine
DX: T38.3X1A Poisoning by insulin and oral hypoglycemic [antidiabetic] drugs, accidental (unintentional), initial encounter (principal); Y92.009 Unspecified place in unspecified non-institutional (private) residence as the place of occurrence of the external cause; E11.9 Type 2 diabetes mellitus without complications; Z79.4 Long term (current) use of insulin
CPT/HCPCS: 36415; 36416; 80048; 80053; 82962; 87635; 99218; 99238; 99285; 85025; 99235; 99284; G0378

== ENCOUNTER 2020-08-29 03:24 | Outpatient (CLI) | payer MEDICAID, SELFPAY ==
[2020-08-29 10:13] LABS: ALT 50 U/L (16-63); AST 20 U/L (15-37); Albumin 3.8 g/dL (3.4-5.0); Alkaline Phosphatase 96 U/L (46-116); Anion Gap 7.8 mmol/L (3-11); BUN 13 mg/dL (7-18); Bilirubin, Total 0.6 mg/dL (0.2-1.0); CO2 28.2 mmol/L (21.0-32.0); CREATININE 0.8 mg/dL (0.70-1.30); Calcium 8.8 mg/dL (8.5-10.1); Chloride 103 mmol/L (98-107); Cholesterol 173 mg/dL (<200); Glucose 265 mg/dL (74-106); HDL Cholesterol 25 mg/dL (40-60); Potassium 4.5 mmol/L (3.5-5.1); Sodium 139 mmol/L (136-145); TSH 1.93 uIU/mL (0.36-3.74); Total Protein 6.9 g/dL (6.4-8.2); Triglyceride 459 mg/dL (<150)
[2020-08-29 10:26] LABS: LDL CHOLESTEROL 83 mg/dL (<100)
== END 2020-08-29 03:25 | disposition home or self-care (01) ==
LOC: LBO 03:24
PROVIDERS: PCP Family Medicine; Visit Provider Internal Medicine Endocrinology, Diabetes & Metabolism
DX: E11.65 Type 2 diabetes mellitus with hyperglycemia (principal); E78.2 Mixed hyperlipidemia
CPT/HCPCS: 36415; 80053; 80061; 83721; 83036; 84443

== ENCOUNTER 2021-06-07 04:21 | Outpatient (CLI) | payer MEDICAID, SELFPAY ==
[2021-06-07 09:00] LABS: Hemoglobin A1C 9.3 % (<5.7)
[2021-06-07 09:51] LABS: COMMENT (LAB VIEW ONLY) 91.31 mg/dL
[2021-06-07 10:00] LABS: ALT 50 U/L (16-63); AST 17 U/L (15-37); Alkaline Phosphatase 92 U/L (46-116); Anion Gap 8.2 mmol/L (3-11); BUN 14 mg/dL (7-18); Bilirubin, Total 0.6 mg/dL (0.2-1.0); CO2 25.8 mmol/L (21.0-32.0); CREATININE 0.8 mg/dL (0.70-1.30); Calculated LDL 69 mg/dL (<100); Chloride 103 mmol/L (98-107); Cholesterol 175 mg/dL (<200); Glucose 244 mg/dL (74-106); HDL Cholesterol 32 mg/dL (40-60); Potassium 4.6 mmol/L (3.5-5.1); Sodium 137 mmol/L (136-145); TSH 1.31 uIU/mL (0.36-3.74); Total Protein 7.1 g/dL (6.4-8.2); Triglyceride 374 mg/dL (<150)
== END 2021-06-07 04:22 | disposition home or self-care (01) ==
LOC: LBO 04:21
PROVIDERS: PCP Family Medicine; Visit Provider Internal Medicine Endocrinology, Diabetes & Metabolism
DX: E11.65 Type 2 diabetes mellitus with hyperglycemia (principal); E78.2 Mixed hyperlipidemia
CPT/HCPCS: 36415; 80053; 80061; 82043; 82570; 83036; 84443

== ENCOUNTER 2021-06-09 09:48 | Emergency (ER) | payer MEDICAID, SELFPAY ==
[2021-06-09 10:20] VITALS: BP 162/92; PULSE 73; RESP 16; TEMP 36.5; O2SAT 98
--- NOTE | 2021-06-09 10:30 | DI.CT_ITS ---
Exam(s) CT HEAD WO EXAM: CT HEAD WO CLINICAL HISTORY: fall/ head injury. TECHNIQUE: Imaging Protocol: Axial computed tomography images with coronal and sagittal reformatted images were created and reviewed COMPARISON: No exams were available for comparison FINDINGS: The ventricular system is normal in appearance. No evidence of acute intracranial hemorrhage, mass effect, or midline shift. The orbital structures are unremarkable. The temporal bone structures appear intact. Calvarium: Normal. Visualized Paranasal sinuses/Mastoids: Clear. IMPRESSION: Normal cranial CT. RADIATION DOSE DELIVERED: 786.23mGy.cm Total DLP 786.23mGy.cm Total DLP !Error CTDIvol DATA REPOSITORY: All CT scans at this facility are submitted to the National Radiology Data Registry (NRDR) Dose Index Registry (DIR) with the [employer] (ACR). RADIATION OPTIMIZATION: All CT scans at this facility use at least one of these dose optimization te chniques: automated exposure control; mA and/or kV adjustment per patient size (includes targeted exa ms where dose is matched to clinical indication); or iterative reconstruction.
--- NOTE | 2021-06-09 11:28 | DI.VRAD_ITS ---
PROCEDURE INFORMATION: Exam: CT Head Without Contrast Exam date and time: 06/09/2021 10:46 AM Age: 45 years old Clinical indication: Injury or trauma; Fall; Blunt trauma (contusions or hematomas); Without loss of consciousness TECHNIQUE: Imaging protocol: Computed tomography of the head without contrast. COMPARISON: No relevant prior studies available. FINDINGS: Brain: No intracranial hemorrhage, mass effect, midline shift, or extra-axial collection. No acute territorial infarct. Cerebral ventricles: No ventriculomegaly. Paranasal sinuses: There is opacification of a single posterior right ethmoid air cell. The remainder of the visualized paranasal sinuses are well aerated. Mastoid air cells: The mastoid air cells are clear bilaterally. Bones/joints: Unremarkable. No depressed calvarial fracture. Soft tissues: Unremarkable. IMPRESSION: No acute intracranial abnormality. No intracranial hemorrhage or depressed calvarial fracture. Dictated and Authenticated by: Mi Sahni MD. Ordering:TRACEY Burns MD
--- NOTE | 2021-06-09 11:49 | ED.GENADUL_ITS ---
Discharge Plan Disposition Patient Disposition: HOME Condition: Stable Discharge Details Clinical Impression: Post-concussion syndrome Primary Care Provider: Brandi Green ED Provider: Grant Headley Home Meds and New Rx's Prescriptions: Continued loratadine 10 MG tablet,disintegrating 10 mg PO DAILY Qty: 1 0RF metformin [Glucophage] 1,000 MG tablet 1,000 mg PO BID 0RF ibuprofen 800 MG tablet 800 mg PO Q8H PRN PRNQty: 20 1RF glipizide 10 mg tablet extended release 24hr 10 mg PO DAILY AM 0RF Label Comments: TAKE 1 TABLET BY MOUTH EVERY DAY Lantus Solostar U-100 Insulin 100 unit/mL (3 mL) insulin pen 50 unit SUBCUT HS 0RF Label Comments: INJECT 60 UNITS SUBCUTANEOUSLY ONCE DAILY MAXIMUM OF 80 UNITS PER DAY Discharge Instructions Instructions: Concussion (ED), Post Concussion Syndrome (ED) Additional Instructions: It is very important that you rest over the next 3 days and then slowly increase your activity as tolerated by headache or symptoms. If you are not improving in the next week please follow-up with your primary care provider for reassessment and if you notice any significant worsening of symptoms including focal neurological symptoms such as numbness or tingling, arm weakness, severe headache, or vomiting you should return immediately to the emergency department for reassessment. Referrals: Brandi Green [Primary Care Provider] - (As needed for reassessment and if not improving) Discharge Data Discharge Date/Time-TO BE ENTERED AT DEPARTURE: 06/09/21 12:06 Medical Decision Making Patient reports fall with head injury 1 week ago. Patient initially improved then started having worsening symptoms of headache and lightheadedness over the last 3 days. Patient denies any focal neurological deficits slurred speech severe drowsiness or other symptoms. Physical exam is unremarkable and cranial nerve exam along with extremities are unremarkable for specific findings. Given recurrence and worsening of symptoms plan to do radiological imaging of the head given acute head injury but otherwise suspect postconcussive syndrome if no findings are noted. CT imaging shows no acute findings noted so I feel that patient is okay to have conservative outpatient management and follow-up with primary care as needed. Discussed with patient both physical and brain rest over the next 3 days and then to increase activity as tolerated. After discussion of diagnosis and plan of care patient has no further needs, questions, or concerns and states clear understanding to return to the emergency department for any worsening symptoms. HPI General Mode of arrival: ambulatory . Date/Time Provider Initiated Documentation: 06/09/21 10:03 . Limitations to Documentation: no limitations . Information obtained by: patient . History of Present Illness 45 year old M presents to the emergency department with the chief complaint of fall with head injury , described as mild, with intensity rated at 1. Quality is described as aching, and is localized to the head. Patient reports no radiation. Patient started experiencing this week(s) (1) and it has been constant. improves with Rest improves symptom(s), Other factors that worsen symptoms (Activity) . Patient notes denies nausea/vomiting, syncope and weakness. Patient did receive the following treatments prior to arrival, NSAID Related Data Home Medications Medication Instructions Recorded Confirmed ibuprofen 800 mg tablet 800 mg PO Q8H PRN PRN #20 tablet 06/04/13 06/09/21 metformin 1,000 mg tablet 1,000 mg PO BID 06/04/13 06/09/21 (Glucophage) loratadine 10 mg disintegrating 10 mg PO DAILY #1 tab-cap 07/16/13 06/09/21 tablet glipizide 10 mg tablet, extended 10 mg PO DAILY AM 07/21/20 06/09/21 release 24 hr insulin glargine 100 unit/mL (3 50 unit SUBCUT HS 07/21/20 06/09/21 mL) subcutaneous pen (Lantus Solostar U-100 Insulin) Previous Rx's Medication Instructions Recorded ibuprofen 800 mg tablet 800 mg PO Q8H PRN PRN #20 tablet 06/04/13 Allergies Allergy/AdvReac Type Severity Reaction Status Date / Time pseudoephedrine HCl Allergy Intermediate Unverified 06/09/21 10:24 [From Dirk] naproxen AdvReac Mild Unverified 06/09/21 10:24 General Stated Complaint: HeadInjury DANIELA: 3 Review of Systems Constitutional Constitutional: Denies body ache(s), Denies chills, Denies daytime sleepiness, Denies fever(s) and Reports headache(s) Eyes Eyes: Denies change in vision ENT Ears, Nose, Mouth, and Throat: Denies vertigo and Reports headache(s) Cardiovascular Cardiovascular: Denies chest pain, Denies syncope and Reports lightheadedness (Intermittent) Respiratory Respiratory: Reports system reviewed and no additional complaints, except as documented Gastrointestinal Gastrointestinal: Reports nausea and Reports vomiting Neurologic Neurologic: Reports as per HPI, Denies vertigo, Denies syncope, Reports h eadache(s), Denies localized weakness, Denies memory loss and Denies sensory deficit Psychiatric Psychiatric: Denies memory loss PFSH All Active Problems Post-concussion syndrome (Acute) Diabetes mellitus type 2, controlled, without complications (Acute) Family History Father Diabetes Heart disease in his early 50's d/t [place] Mother Diabetes Sister Diabetes Social History Smoking/Tobacco Use Status: Never Smoking risk assessment performed?: Yes Alcohol Intake: never Drug use: Never Substance use type: does not use Do you feel safe at home: Yes Do you feel safe in your relationship?: Yes Exam Const General: cooperative, healthy appearing, no acute distress and well groomed Orientation: alert, awake and oriented x3 HENMT Head: normal to inspection Ears: hearing grossly normal bilaterally and TM's normal bilaterally Mouth: oral mucosae normal and moist mucous membranes Throat: posterior oropharynx normal Eyes Visual Andres: normal visual andres by confrontation Alignment and Position: alignment normal Periorbital: periorbital findings normal Eyelids: eyelids normal Sclera: sclerae normal Cornea: corneas normal Pupils: PERRL EOM: EOM intact bilaterally Neck Neck: normal visual inspection, full ROM and no meningeal signs Resp Effort & Inspection: normal respiratory effort and able to speak in complete sentences Auscultation: clear to auscultation bilaterally Cardio Rate: regular rate Rhythm: regular rhythm Heart Sounds: S1 normal and S2 normal Neuro General: patient alert, patient awake, patient oriented x3, gait normal, tone normal, moves all extremities, CN's II-XI intact bilaterally and not confused Cognition: normal cognition Speech: speech normal Motor: muscle tone normal throughout, strength 5/5 throughout, no pronator drift, no movement abnormalities noted and no fasciculations Sensory Exam: no sensory deficits noted Coordination: Does not sway with eyes open Course Vital Signs Vital signs: Vital Signs Temperature 36.5 C 06/09/21 10:20 Pulse 73 03/05/22 10:20 Respiratory Rate 16 06/09/21 10:20 Blood Pressure 162/92 H 06/09/21 10:20 Pulse Oximetry 98 06/09/21 10:20 Temperature 36.5 C 06/09/21 10:20 Temperature Source Skin 06/09/21 10:20 Pulse 73 06/09/21 10:20 Respiratory Rate 16 06/09/21 10:20 Respiratory Effort Non-Labored 06/09/21 10:52 Respiratory Depth Normal 06/09/21 10:52 Respiratory Pattern Normal 06/09/21 10:52 Blood Pressure 162/92 H 06/09/21 10:20 Blood Pressure Position Sitting 06/09/21 10:20 Pulse Oximetry 98 06/09/21 10:20 Oxygen Delivery Method Room Air 06/09/21 10:20 Oxygen Flow Rate 0 06/09/21 10:20 Pain Level 1 06/09/21 10:20
[2021-06-09 12:00] VITALS: BP 148/87; PULSE 80; TEMP 36.6; O2SAT 97
[2021-06-09 12:04] VITALS: BP 148/87; PULSE 80; RESP 16; TEMP 36.6; O2SAT 97
== END 2021-06-09 12:06 | disposition home or self-care (01) ==
PROVIDERS: Emergency Provider Nurse Practitioner Family; PCP Family Medicine
DX: S09.8XXA Other specified injuries of head, initial encounter (principal); F07.81 Postconcussional syndrome; W00.0XXA Fall on same level due to ice and snow, initial encounter; R51.9 Headache, unspecified
CPT/HCPCS: 99284; 70450; 99283

== ENCOUNTER → 2022-02-07 02:19 | Outpatient (CLI) | payer MEDICAID, SELFPAY ==
--- NOTE | 2022-02-07 13:30 | DI.RAD_ITS ---
Exam(s) XR SHOULDER RT COMPLETE 2+V EXAM: XR SHOULDER RT COMPLETE 2+V CLINICAL HISTORY: RT SHOULDER JT PAIN, M25.511 TECHNIQUE: COMPARISON: No exams were available for comparison FINDINGS: Five views were obtained. There appears to be mild narrowing of the cartilaginous joint space of the glenohumeral joint. This is presumably on a degenerative basis. No other bony or soft tissue abnor mality seen. IMPRESSION: RADIATION DOSE DELIVERED: Total DLP
== END ==
PROVIDERS: PCP Family Medicine; Visit Provider Family Medicine
DX: M25.511 Pain in right shoulder (principal)
CPT/HCPCS: 73030

== ENCOUNTER 2022-05-30 08:17 | Day surgery (SDC) | payer BC, MEDICAID, SELFPAY ==
--- NOTE | 2022-05-29 21:18 | W.PM.DSUDISC ---
Date of service: 05/30/22 Time of Service: 10:16 Discharge Plan Disposition Patient Disposition: Home Condition: Good Discharge Details Reason For Visit: Screening colonoscopy Attending Provider: Daniel Sterling Primary Care Provider: Brian Bryson Home Meds and New Rx's Prescriptions: Continued Jardiance 10 mg tablet 10 mg PO DAILY loratadine 10 MG tablet,disintegrating 10 mg PO DAILY Qty: 1 fluticasone propionate 50 mcg/actuation spray,suspension 1 spray intranasal BID Rx Instructions: administer into each nostril ibuprofen 800 MG tablet 800 mg PO Q8H PRN PRNQty: 20 1RF glipizide 10 mg tablet extended release 24hr 10 mg PO DAILY AM Patient Comments: TAKE 1 TABLET BY MOUTH EVERY DAY insulin glargine [Lantus Solostar U-100 Insulin] 100 unit/mL (3 mL) insulin pen 50 unit SUBCUT HS Patient Comments: INJECT 60 UNITS SUBCUTANEOUSLY ONCE DAILY MAXIMUM OF 80 UNITS PER DAY Discontinued bisacodyl [Dulcolax (bisacodyl)] 5 mg tablet,delayed release (DR/EC) 5 mg PO ONCE Qty: 4 0RF Rx Instructions: Take according to provider's instructions for colonoscopy prep. polyethylene glycol 3350 17 gram/dose powder 17 g PO ONCE Qty: 238 0RF Rx Instructions: To be taken as directed by prescriber's office for colonoscopy prep. Discharge Instructions Instructions: Hemorrhoids (GEN), Colorectal Polyps (GEN) Additional Instructions: EJ, we were able to perform your colonoscopy without any difficulty today. As you mentioned, you have some very mild internal hemorrhoids. I would try to treat these with basic diet changes like staying well-hydrated, and maintaining a diet rich in fibers to avoid constipation. We will provide some information here on general hemorrhoid care. I found 1 polyp that was quite small. I removed it completely. I will let you know when I have the pathology report. 1. If tolerated, consume a soft, low fiber diet for 1-2 days. [address] Do not drive, drink alcohol, operate machinery, make critical decisions, or do activities that require coordination or balance for 24 hours. 3. Because air was put into your colon during the procedure, expelling air from your rectum (passing gas or farting) is normal. 4. You may not have a bowel movement for 1-3 days because of the colonoscopy prep. This is normal. 5. Go directly to the emergency room if you notice any of the following: Develop chills (warm to touch), or if you have a thermometer and your temperature is above 101 Difficulty breathing or difficultly swallowing Persistent vomiting Severe abdominal pain, other than gas cramps Severe chest pain Black, tarry stools Any bleeding ? exceeding one tablespoon 6. Call your physician if the site where your intravenous was started becomes red, swollen, painful, and warm to touch. 7. Your physician has reviewed your pre-procedure medications. Please continue to take those medications as previously ordered. You will be given specific information/education regarding any changes to your medications before leaving. Activity:: Activity as Tolerated Diet:: As Tolerated Discharge Orders Discharge Orders: Discharge Order (Routine); Ordered 05/29/22 Ordered By: Daniel Sterling DS: Diagnosis Discharge Diagnosis (1) Screening for colon cancer: Status: Acute Asessment and Plan: Follow-up on polypectomy results
--- NOTE | 2022-05-29 21:20 | W.COLOREPORT ---
Date of service: 05/30/22 Time of Service: 10:25 Colonoscopy Report Date of procedure: 05/30/22 Pre-op diagnosis general: Screening colonoscopy Procedure: Colonoscopy Surgeon: Daniel Sterling Anesthesia Type: General:No Airway Pathology: other (Colon polyp at 65 cm) Complications: None Disposition: same day Indications: Sam is 46 years old and he is undergoing his first screening colonoscopy Prep: Miralax/Dulcolax Procedure Start Time: 09:33 Procedure End Time: 09:55 Retraction Time: 12 Findings: Mild grade 1 internal hemorrhoids, colon polyp at 65 cm Procedure Description: After the induction of monitored anesthetic care, and with the patient in left lateral decubitus position, I began by performing an external anorectal exam.? Perineum and skin were normal, as was the anal verge.? There was no not evidence of external hemorrhoids.? Next, I performed a digital rectal exam.? I did appreciate any abnormal findings.? Next, I advanced a colonoscope into the rectal vault.? I performed retroflexion.? There were grade 1 internal hemorrhoids, mostly limited to a single column.? Using insufflation, I then advanced the colonoscope beyond the rectal folds and into the sigmoid colon before advancing towards the cecum.? The quality of the prep was excellent.? The scope was noted to be in the cecum by identification of the ileocecal valve and appendiceal orifice.? I then began withdrawing the colonoscope using repeated irrigation as necessary for full evaluation of the colonic mucosa. Around 65 cm from the anal verge I identified a 0.25 cm polyp. ?It appeared sessile in character. ?I was able to remove this with a cold forcep polypectomy. ?I examined the site, and there was minimal bleeding. ?Once this was completed, I continued to withdraw the scope and examine the remainder of the colonic mucosa.?Once the scope was withdrawn to the level of the rectum, great care was taken to examine portions of the rectal folds.? Finally, the scope was withdrawn and the patient was brought to the same-day surgery recovery unit as the anesthetic wore off. ?The findings and instructions were shared with the patient prior to discharge.
--- NOTE | 2022-05-30 06:30 | W.ANESPRE ---
General Info Date of Service Date Performed: 05/30/22 Height: 5 ft 8 in Weight: 107.955 kg Body Mass Index (BMI): 36.1 Surgical Procedure: Operation Date: 05/30/22 09:50 Proposed Procedure Side Surgeon carmen Sterling MD Meds Allergies and Home Medications Allergies Allergy/AdvReac Type Severity Reaction Status Date / Time pseudoephedrine HCl Allergy Intermediate Unverified 05/30/22 08:52 [From Sudafed] naproxen AdvReac Mild Unverified 05/30/22 08:52 Home Medication Medication Instructions Recorded ibuprofen 800 mg tablet 800 mg PO Q8H PRN PRN #20 tabs 06/04/13 loratadine 10 mg disintegrating 10 mg PO DAILY #1 tab-cap 07/16/13 tablet glipizide 10 mg tablet, extended 10 mg PO DAILY AM 07/21/20 release 24 hr insulin glargine 100 unit/mL (3 50 unit subcut HS 07/21/20 mL) subcutaneous pen (Lantus Solostar U-100 Insulin) fluticasone propionate 50 1 spray intranasal BID 02/07/22 mcg/actuation nasal spray,suspension empagliflozin 10 mg tablet 10 mg PO DAILY 05/16/22 (Jardiance) Current Visit Medications: Current Medications Generic Name Dose Route Start Last Admin Trade Name Freq PRN Reason Stop Dose Admin Hyoscyamine Sulfate 0.125 mg 05/29/22 21:21 Hyoscyamine 0.125 Mg Sl/Oral/Chew SL DIRECTED PRN Ringer's Solution 1,000 mls @ 80 mls/hr 05/30/22 06:00 IV 06/28/22 23:59 INF[facility]ION [facility] IV Miscellaneous Supplies 1 each 05/30/22 06:00 Iv Access IV 06/28/22 23:59 DIRECTED RASHAD Ondansetron HCl 4 mg 05/29/22 21:21 Ondansetron 4 Mg/2 Ml Vial IVP Q4H PRN PRN Nausea / Vomiting Sodium Chloride 0 ml 05/30/22 06:00 Normal Saline Flush 10 Ml Syr IV 06/28/22 23:59 PRN PRN Sodium Chloride 0 ml 05/30/22 06:00 Normal Saline 10 Ml Vial IJ 06/28/22 23:59 DIRECTED PRN Sterile Water 0 ml 05/30/22 06:00 Water,Injection,Sterile 10 Ml Vial IJ 06/28/22 23:59 DIRECTED PRN PFSH Active Problems Active Problems: Problem Status Onset Code Diabetes mellitus type 2, controlled, without complications E11.9 Screening for colon cancer Z12.11 Epidermoid cyst L72.0 Surgical History Surgical History [place] teeth extracted Tobacco Smoking/Tobacco Use Status: Never Alcohol Alcohol Intake: current Alcohol intake frequency: a few times a month Substance Use Substance use: Never Substance use type: does not use Vital Signs and Lab Results Lab Results Blood Type / Crossmatch: No Data to Display Complete Blood Count: No Data to Display Complete Metabolic Panel: No Data to Display Liver Function Panel: No Data to Display Coagulation Panel: No Data to Display Cardiac Panel: No Data to Display Arterial Blood Gas: No Data to Display Venous Blood Gas: No Data to Display Pancreas Panel: No Data to Display Thyroid Panel: No Data to Display Infectious Disease: No Data to Display Blood Cultures: No Data to Display Toxicology Panel: No Data to Display Anesthesia Assessment and Plan Anesthesia History Personal History: No History of Anesthesia Complications Family History: No Family History of Anesthesia Complications Exercise Tolerance Exercise Tolerance: Metabolic Equivalents>4 Pertinent Negatives Pertinent Negatives: No Symptoms of GERD Cardiac & Pulmonary Exam Cardiac Exam: Normal S1/S2 Heart Sounds Pulmonary Exam: Clear Bilateral Breath Sounds Implantable Cardiac Device Does patient have a Pacemaker or an ICD?: No Airway Exam Known Difficult Airway: No Mallampati Class: 2 Mouth Opening: Normal (> 3cm) Thyromental Distance: Greater than 3 cm Neck Range of Motion: Full ROM Neck Circumference: Normal Teeth Condition: Normal Dentition ASA Classification ASA Score: ASA 2 Emergency Case?: No NPO Status NPO Status: NPO Clears >2 hours, Solids >8 hours Anesthesia Plan Resuscitation Status: Full Code Anesthesia Technique: General Anesthesia Airway Planned: Natural Airway Monitors Used: Standard Monitors
[2022-05-30 08:35] VITALS: BP 148/109; PULSE 71; RESP 16; TEMP 36.2; O2SAT 97
[2022-05-30] MEDS: Lactated Ringers 1,000 ML 80 ML IV (09:00)
[2022-05-30 09:08] VITALS: BMI 36.1
[2022-05-30 09:26] VITALS: BP 134/74; PULSE 73
--- NOTE | 2022-05-30 09:50 | BOWEL_PTH ---
PATIENT: Hien Corley LOC: [facility] U#:[id number] AGE/SX: 46/M ROOM: RE05/30/[address]: Daniel Sterling MD : 1975 BED: DIS: 05/30/2022 SPEC #: [id number] RECD: 05/30/22 12:51 STATUS: JACOB RE #: [id number] SULEMAN: 05/30/22 09:[address]: Daniel Sterling DEPT: Surgical Specimen RECD BY: Judy Rizzo ENTERED: 05/30/22 12:51 SP TYPE: Bowel OTHR DR: Brian Bryson Tissues: 1 - BIOPSY BOWEL Procedures: GROSS AND MICRO LEVEL 4 Comments: [id number]
[2022-05-30 10:00] VITALS: BP 127/75; PULSE 71; RESP 17; TEMP 36.4; O2SAT 97
--- NOTE | 2022-05-30 10:14 | W.ANESPOSTOP ---
Postoperative Evaluation Date, Time and Location Date Performed: 05/30/22 Time Performed: 10:14 Patient Location: Day Surgery Unit Vital Signs Most Recent Imported Vital Signs: Most Recent Vital Signs Temp Pulse Resp BP Pulse Ox 36.4 C L 71 17 127/75 97 05/30/22 10:00 05/30/22 10:00 05/30/22 10:00 05/30/22 10:00 05/30/22 10:00 Pain Score Most Recent Pain Score: Most Recent Pain Score Pain Level 0 05/30/22 10:00 Assessment Mental Status: Awake (Alert & Oriented to Patient Baseline) Airway and Respiratory Function: Patent airway with normal (patient baseline) respiratory exam Cardiovascular Function: Hemodynamically Stable Hydration Status: Adequately Hydrated Nausea & Vomiting: No Nausea or Vomiting Pain: Pt. Denies Any Pain Peripheral Nerve Block: Patient did not receive a nerve block
[2022-05-30 10:31] VITALS: BP 161/79; PULSE 72; RESP 17; TEMP 36.4; O2SAT 99
== END 2022-05-30 10:45 | disposition home or self-care (01) ==
LOC: SUR 08:18
PROVIDERS: PCP Family Medicine; Visit Provider Surgery
PROC: 0DJD8ZZ Inspection of Lower Intestinal Tract, Via Natural or Artificial Opening Endoscopic (ICD-10-PCS; CPT 45378; principal; 2022-05-30 09:45)
DX: Z12.11 Encounter for screening for malignant neoplasm of colon (principal); K64.0 First degree hemorrhoids; K63.5 Polyp of colon
CPT/HCPCS: 45380; 88305

== ENCOUNTER 2022-09-20 02:54 | Outpatient (CLI) | payer BC, MEDICAID, SELFPAY ==
[2022-09-20 09:18] LABS: HCT 50.5 % (40.0-50.0); HGB 17.5 g/dL (13.5-17.5); MCH 27.5 pg (27.0-33.0); MCHC 34.7 % (32.0-36.0); MCV 79 fL (80-95); MPV 9.4 fL (8.0-11.0); Platelet Count 213 10^3/uL (130-400); RBC 6.37 10^6/uL (4.36-5.78); RDW 15.9 % (11.8-14.1); RDW-SD 42.3 fL; WBC 5.73 10^3/uL (4.4-10.8)
[2022-09-20 09:49] LABS: ALT 41 U/L (16-63); Albumin 3.9 g/dL (3.4-5.0); Alkaline Phosphatase 89 U/L (46-116); Anion Gap 12.3 mmol/L (3-11); BUN 17 mg/dL (7-18); Bilirubin, Total 0.5 mg/dL (0.2-1.0); CO2 20.7 mmol/L (21.0-32.0); CREATININE 0.9 mg/dL (0.70-1.30); Calcium 8.5 mg/dL (8.5-10.1); Chloride 104 mmol/L (98-107); Cholesterol 213 mg/dL (<200); Glucose 228 mg/dL (74-106); HDL Cholesterol 31 mg/dL (40-60); Potassium 4.2 mmol/L (3.5-5.1); Sodium 137 mmol/L (136-145); Total Protein 7.5 g/dL (6.4-8.2); Triglyceride 829 mg/dL (<150)
[2022-09-20 10:01] LABS: LDL CHOLESTEROL 78 mg/dL (<100)
[2022-09-20 10:35] LABS: AST 7 U/L (15-37)
== END 2022-09-20 02:55 | disposition home or self-care (01) ==
LOC: LBO 02:55
PROVIDERS: PCP Family Medicine; Visit Provider Family Medicine
DX: Z00.00 Encounter for general adult medical examination without abnormal findings (principal); E11.9 Type 2 diabetes mellitus without complications; E78.5 Hyperlipidemia, unspecified; E66.9 Obesity, unspecified
CPT/HCPCS: 36415; 80053; 80061; 83721; 85027

== ENCOUNTER 2023-05-21 16:40 | Outpatient (REF) | payer BC, SELFPAY ==
[2023-05-21 18:22] LABS: COMMENT (LAB VIEW ONLY) 51.51 mg/dL; Microalb ug/mg Crea 18.6 ug/mg Cr
== END 2023-05-21 16:41 | disposition home or self-care (01) ==
LOC: NCHCN 16:40
PROVIDERS: PCP Family Medicine; Referring Provider Family Medicine; Visit Provider Family Medicine
DX: E11.9 Type 2 diabetes mellitus without complications (principal)
CPT/HCPCS: 82043; 82570

== ENCOUNTER 2024-01-02 02:22 | Outpatient (CLI) | payer MEDICAID, SELFPAY ==
--- OUTSIDE RECORDS SUMMARY | 2024-01-02 02:25 | XMS_ITS | Encounter Summary ---
Author Organization [facility] [place] [address] Care Team Providers Care Refuse Driver Name Role Phone Jerome Carlin DO Primary Care Provider +1- [phone] Encounter Details Date Type Department Care Team (Late st Contact Info) Description 04/18/2016 11:00 AM EST Ext Surgery or Single Event [facility] [address] [place] [id number] Abdoul James Jr., MD [address] [facility] [place] [address] Chest pain, unspecified Social History Tobacco Use Types Packs/Day Years Used Date Smoking Tobacco: Never Assessed Sex and Gender Information Value Date Recorded Sex Assigned at Not on file Gender Identity Not on file Sexual Orientation Not on file documented as of this encounter Plan of Treatment Not on file documented as of this encounter Procedures Procedure Name Priority Date/Time Associated Diagnosis Comments ECG SCAN 04/18/2016 12:00 AM EST STRESS TEST, EXERCISE (TREADMILL) Routine 04/18/2016 documented in this encounter Results * Stress Test, Exercise (Treadmill) (04/18/2016) Anatomical Region Laterality Modality Other Narrative 04/18/2016 Exercise Stress Test- Final Report ?? Sam Corley : 1975 [facility], [address] [facility] [address] Primary Physician: ??Jerome Carlin ??Indication: chest pain Date: 04/18/2016 Summary: Max Exercise: ??7:00, 1:00 ??Stage III ??Thomas ?? 8 ?? METS Max HR: ? 171> 85 % PMR(151) Max BP: ??211/[address] change: ??none Reason for Termination: dyspnea, fatigue Impression: good exercise tolerance, no ischemia, low probability of obstructive coronary artery disease Details: Medication: no cardiac Risk Factors: ?? Family History, ??DM, Cholesterol Resting EKG: NSR 76, normal ?Resting BP: 141/82 Exercise per Thomas protocol Arrhythmias: none Recovery: ??BP ?? -> ?? 190/76 ?HR ?? -> 100 Arrhythmias: none Electronically signed: Abdoul James Jr, MD FAC ??Date: 04/18/2016 Historical Provider CARDIAC SERVICES ORDERABLES * SCAN DOC: ECG (04/18/2016 12:00 AM EST) Scanning Provider MEDIA MGR SCAN EXT O RDR/RSLT documented in this encounter Visit Diagnoses Diagnosis Chest pain, unspecified documented in this encounter Care Teams Refuse Driver Relationship Specialty Start Date End Date Jerome Carlin DO [address] [id number] PCP - General Family Medicine 04/18/16 documented as of this encounter
--- OUTSIDE RECORDS SUMMARY | 2024-01-02 02:25 | XMS_ITS | Encounter Summary ---
Author Organization [facility] Address [facility] [place] [address] Care Team Providers Care Furniture Technician Name Role Phone Jerome Carlin DO Primary Care Provider +1- [phone] Encounter Details Date Type Department Care Team (Latest Contact Info) Description 06/11/2016 - 06/11/2016 11:59 PM EST Hospital Encounter Radiology Library at [facility] [place] [address] José Luis Cardona MD [facility] [place] [address] Pain Discharge Disposition: Home Social History Tobacco Use Types Packs/Day Years Used Date Smoking Tobacco: Never Assessed Sex and Gender Information Value Date Recorded Sex Assigned at Not on file Gender Identity Not on file Sexual Orientation Not on file documented as of this encounter Plan of Treatment Not on file documented as of this encounter Procedures Procedure Name Priority Date/Time Associated Diagnosis Comments FILM LIBRARY STORAGE ONLY DX SPINE Routine 06/11/2016 12:00 AM EST Pain documented in this encounter Results * Film Library- Storage Only DX Spine (06/11/2016 12:00 AM EST) Narrative DAVID - 06/21/2016 5:00 PM EDT This exam is for storage only and is auto-finalizing. José Luis Cardona MD IMG FILM LIBRARY ORD ERABLES [place], [place] documented in this encounter Visit Diagnoses Diagnosis Pain Generalized pain documented in this encounter Care Teams Furniture Technician Relationship Specialty Start Date End Date Jerome Carlin DO [address] [phone] PCP - General Family Medicine 04/18/16 documented as of this encounter
--- OUTSIDE RECORDS SUMMARY | 2024-01-02 02:25 | XMS_ITS | Clinical Summary ---
Author Organization [facility] Address [address] [place] [address] Care Team Providers Care Groundman/Lineman Name Role Phone RaeganJerome daniel Primary Care Provider Social History Tobacco Use Types Packs/Day Years Used Date Smoking Tobacco: Never Assessed Sex and Gender Information Value Date Recorded Sex Assigned at Not on file Gender Identity Not on file Sexual Orientation Not on file Plan of Treatment Health Maintenance Due Date Last Done Comments Hepatitis C Screen 1975 Hepatitis B Vaccine (1 of 3 - 19+ 3-dose series) 07/01 COVID-19 Vaccine ( season) 2022 Care Teams Groundman/Lineman Relationship Specialty Start Date End Date Jerome Carlin DO [address] [place] [id number] PCP - General 01/02/16
--- OUTSIDE RECORDS SUMMARY | 2024-01-02 02:25 | XMS_ITS | Encounter Summary ---
Author Organization [facility] Address [facility] [place] [address] Care Team Providers Care Truck Packer Name Role Phone Jerome Soares DO Primary Care Provider +1- [phone] Reason for Visit * Reason Comments Back Pain * Consultation (Routine) - Closed Specialty Diagnoses / Procedures Referred By Contac t Referred To Contact Orthopaedics Diagnoses LBB from [facility] Jerome Soares, DO [address] [place] [address] [facility] [address] [place] [address] Referral ID Status Reason Start Date Expiration Date V isits Requested Visits Authorized [id number] Closed Connection Center 06/21/2016 06/21/2017 1 1 Encounter Details Date Type Department Care Team (Late st Contact Info) Description 07/04/2016 2:30 PM EDT Office [place] [address] Nato Plunkett PA [facility] [place] [address] Chronic midline low back pain without sciatica Social History Tobacco Use Types Packs/Day Years Used Date Smoking Tobacco: Never Smokeless Tobacco: Never Sex and Gender Information Value Date Recorded Sex Assigned at Not on file Gender Identity Not on file Sexual Orientation Not on file documented as of this encounter Last Filed Vital Signs Vital Sign Reading Time Taken Comments Blood Pressure 129/81 07/04/2016 2:34 PM EDT Pulse - - Temperature - - Respiratory Rate - - Oxygen Saturation - - Inhaled Oxygen Concentration - - Weight 108.9 kg (240 lb) 07/04/2016 2:34 PM EDT Height 172.7 cm (5' 8) 07/04/2016 2:34 PM EDT Body Mass Index 36.49 07/04/2016 2:34 PM EDT documented in this encounter Progress Notes * Nato Plunkett PA - 07/04/2016 2:30 PM EDT SUBJECTIVE: Sam Corley is a 41-year-old gentleman seen today at the request of Dr. Jerome Soares with a chief complaint of low back pain present over a chronic basis for several years. He mentions this pain comes rather intermittently without clear inciting incidents. At times he localizes some pain on the left testicular/groin area but otherwise denies any pain or thigh discomfort. Today, he mentions the pain is 2/10. The pain is generally located over the midline low back and does not appear to radiate otherwise. At times he mentions this diffuse left-sided numbness throughout his body that involves the circumferential left upper and left lower extremities, and at times perhaps involves the cheek. He otherwise does not really mention any focal deficits with his strength or sensation in the upper or lower extremities that occur over a more persistent basis. He notes some improvement when he is sitting, and at rest, and otherwise notes that the pain appears to bother him with standing, and lifting. He reports the pain is generally quite well tolerated and low-grade. At times he takes an pqup-you-umdebqv antiinflammatory, Naproxen 220 mg, but otherwise notes that his pain is generally low degree enough that he does not really require this medication. He mentions that the primary activities he is limited from doing is just lifting, but otherwise is able to do most of his activities day to day without much restrictions. Review of systems is negative for GI, , constitutional symptoms. He denies prior spine surgeries. He denies tobacco or alcohol use. 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 OBJECTIVE: This is a pleasant, obese, 41-year-old gentleman who appears his stated age and is in no acute distress. Height is 5 feet 8 inches, weight is 240 pounds, body mass index 36.6. His gait is normal. He performs toe walk and heel walk without much difficulty. Low back is unremarkable to inspection. He is nontender to palpation of the midline low back and over the bilateral buttocks. Lumbar flexion to about 70 degrees, lumbar extension to about 15 degrees without significant back or lower extremity symptoms at either end range. Sensory examination to light touch shows no focal deficits. Motor examination shows full strength of the lower extremities. Reflexes are +2 and symmetric at both knees and both ankles. Negative straight leg raising bilaterally. There is no clonus or Babinski. Painless hip range of motion without groin or thigh pain bilaterally. Palpable peripheral pulses. Plain x-rays of the lumbar spine with AP and lateral views were viewed today. In the AP view, there is no scoliosis, and lateral view shows no spondylolisthesis. There is some mild disk space narrowing of L3-L4, but otherwise some moderate disk space narrowing and facet arthropathy L4-L5, L5-S1. ASSESSMENT/PLAN: Sam Corley is a 41-year-old male with chronic low back pain. There is no logical examination that is entirely reassuring. He, at times, has these complaints of what almost appears to be an entire left-sided body numbness but otherwise does not really have any fixed motor or sensory deficits. His neurological examination as mentioned prior is entirely reassuring. His radiographs show some age-appropriate degenerative changes, particularly at the lowest lumbar levels where they are generally expected. His pain appears to be quite minimal, however, being only 2/10, and his Oswestry Disability index is only 4/100, indicating rather minimal disability. I discussed with Mr. Corley that given how well he appears to be doing, that invasive treatment is certainly not indicated at present and there is certainly no need for further imaging. I advised him that proceeding with activity as tolerated, and anti-inflammatory medications as needed would be more appropriate. He does live a distance away from us, and the pain appears to be well-controlled in general. I did talk with him instead about considering doing a home exercise program and I gave him the Treat Your Own Back book by Shantanu Soares with instructions to read it, as this provides instructions regarding the nature of chronic low back pain, and provides simple to follow self-directed exercise program that he can initiate on his own. I did advise him in the option of meeting formally with one of our physical therapists for 1 to 2 sessions, should he have inadequate relief with doing this on his own. Otherwise, we talked about the use of antiinflammatory medications, and I did talk to him about the option of taking diphenhydramine 25 mg at bedtime, if sleep becomes a problem, as this is similar from taking an Advil p.m. Otherwise, we will have him follow up on an as needed basis. documented in this encounter Plan of Treatment Not on file documented as of this encounter Visit Diagnoses Diagnosis Chronic midline low back pain without sciatica documented in this encounter Care Teams Truck Packer Relationship Specialty Start Date End Date Jerome Soares DO [address] [place] [address] PCP - General Family Medicine 04/18/16 documented as of this encounter
--- OUTSIDE RECORDS SUMMARY | 2024-01-02 02:25 | XMS_ITS | Clinical Summary ---
Author Organization [facility] [place] [address] Care Team Providers Care Store Sales Consultant Name Role Phone Jerome Carlin DO Primary Care Provider +1- [phone] Allergies Active Allergy Reactions Criticality Noted Date Comments Cis Free Text Allergy prescription pain killers. Pseudoephedrine Hcl Medications Medication Sig Dispensed Refills Start Date End Date Status metFORMIN (GLUCOPHAGE) 500 mg Tablet Take 500 mg by mouth 2 times daily (with meals). Active loratadine (CLARITIN) 10 mg Tablet Take 10 mg by mouth daily. Active naproxen sodium (ANAPROX) 220 mg Tablet Take 220 mg by mouth 2 times daily (with meals). Active Social History Tobacco Use Types Packs/Day Years Used Date Smoking Tobacco: Never Smokeless Tobacco: Never Sex and Gender Information Value Date Recorded Sex Assigned at Not on file Gender Identity Not on file Sexual Orientation Not on file Last Filed Vital Signs Vital Sign Reading Time Taken Comments Blood Pressure 129/81 07/04/2016 2:34 PM EDT Pulse - - Temperature - - Respiratory Rate - - Oxygen Saturation - - Inhaled Oxygen Concentration - - Weight 108.9 kg (240 lb) 07/04/2016 2:34 PM EDT Height 172.7 cm (5' 8) 07/04/2016 2:34 PM EDT Body Mass Index 36.49 07/04/2016 2:34 PM EDT Plan of Treatment Health Maintenance Due Date Last Done Comments CT Colonography 1975 Colonoscopy 1975 Colorectal Cancer Screening 1975 FIT DNA 1975 FIT 1975 Sigmoidoscopy (10 year) with FIT yearly 1975 Sigmoidoscopy 1975 HIV screen 07/02/1991 Hepatitis C Screening 07/02/1991 Lipid Screening 07/02/1991 Hepatitis B vaccine (0-59 yrs) (1) 1992 Tdap adult (Retired) 1992 Tetanus vaccine (Retired) 1992 Zoster vaccine (1 of 2) 07/02/2023 Covid-19 Vaccine (1 - 2022-24 season) 2023 Influenza (Flu) vaccine (1 o f 1 - Influenza standard series) 12/07/2023 Care Teams Store Sales Consultant Relationship Specialty Start Date End Date Jerome Carlin DO [address] [place], [place] [phone] PCP - General Family Medicine 04/18/16
--- OUTSIDE RECORDS SUMMARY | 2024-01-02 02:25 | XMS_ITS | Referral Summary ---
Author Organization [facility] Address [address] [place] [address] Care Team Providers Care Surveyor'S Assistant Name Role Phone Raegan Jerome Primary Care Provider Social History Tobacco Use Types Packs/Day Years Used Date Smoking Tobacco: Never Assessed Sex and Gender Information Value Date Recorded Sex Assigned at Not on file Gender Identity Not on file Sexual Orientation Not on file Plan of Treatment Not on file Care Teams Surveyor'S Assistant Relationship Specialty Start Date End Date Jerome Calrin DO [address] [place] [address] PCP - General 01/02/16
--- OUTSIDE RECORDS SUMMARY | 2024-01-02 02:25 | XMS_ITS | Encounter Summary ---
Author Organization [facility] Address [address] [place] [address] Care Team Providers Care Obstetric Anaesthetist Name Role Phone RaeganJerome barksdale Primary Care Provider Encounter Details Date Type Department Care Team (Late st Contact Info) Description 05/30/2022 Lab Requisition [facility] Pathology & Laboratory Medicine - [facility] [address] [place] [address] Daniel Sterling MD [address] [place] [address], [address] [place], [place] [address] Encounter for screening for malignant neoplasm of colon Social History Tobacco Use Types Packs/Day Years Used Date Smoking Tobacco: Never Assessed Sex and Gender Information Value Date Recorded Sex Assigned at Not on file Gender Identity Not on file Sexual Orientation Not on file documented as of this encounter Plan of Treatment Not on file documented as of this encounter Procedures Procedure Name Priority Date/Time Associated Diagnosis Comments SURGICAL PATHOLOGY Today 05/30/2022 9:50 EST Encounter for screening for malignant neoplasm of colon documented in this encounter Results * SURGICAL PATHOLOGY (05/30/2022 9:50 EST) Note to Patient The following pathology results have been interpreted by your pathologist and may be available to you before your health provider has had the opportunity to review them. Please allow time for your provider to receive these results and explore management options, if applicable. 06/03/2022 9:[address] [facility] Final Diagnosis A. COLON, 65 CM, POLYP, BIOPSY: - Tubular adenoma. 06/03/2022 9:21 [facility] Attestation There was significant resident/fellow involvement in the diagnostic evaluation of this case. By the signature below, the attending physician certifies that they have personally conducted a gross and/or microscopic examination of the described specimens and rendered or confirmed the above diagnosis. 06/03/2022 9:21 [facility] at 0921 Clinical History Screening colonoscopy; clinical diagnosis code: Z12.11 06/03/2022 9:21 [facility] Gross Description A. Received in formalin labelled with proper patient identification (initials N, D) and polyp at 65 cm is a álvarez-pink tissue measuring 0.5 x 0.3 x 0.1 cm. Submitted intact in A1. HILDA FOLEY(ASCP) 05/30/2022 19:14 06/03/2022 9:21 [facility] Resident/Shan w: Aaliyah Duggan MD 06/03/2022 9:21 [facility] Performing Lab [facility] 06/03/2022 9:21 [facility] Scanned Images 06/03/2022 9:21 [facility] Tissue ENTIRE COLON / Unknown 05/30/2022 9:50 EST 05/30/2022 16:53 EST Daniel Sterling MD PATHOLOGY ORDERABLES Performing Organization Address City/State/[facility] Co de Phone Number [facility] [address] [place] [phone] documented in this encounter Visit Diagnoses Diagnosis Encounter for screening for malignant neoplasm of colon Special screening for malignant neoplasms, colon documented in this encounter Care Teams Obstetric Anaesthetist Relationship Specialty Start Date End Date Jerome Carlin DO [address] [place] [address] PCP - General 01/02/16 documented as of this encounter
--- OUTSIDE RECORDS SUMMARY | 2024-01-02 02:26 | XMS_ITS | Encounter Summary ---
Author Organization [facility] Address [address] [place] [address] Care Team Providers Care Bread Room Hand Name Role Phone Jerome Carlin DO Primary Care Provider [phone] Encounter Details Date Type Department Care Team (Late st Contact Info) Description 01/03/[address] [facility] [phone] Jerome Carlin, DO [address] [place] [address] Social History Tobacco Use Types Packs/Day Years Used Date Smoking Tobacco: Never Assessed Sex and Gender Information Value Date Recorded Sex Assigned at Not on file Gender Identity Not on file Sexual Orientation Not on file documented as of this encounter Plan of Treatment Not on file documented as of this encounter Procedures Procedure Name Priority Date/Time Associated Diagnosis Comments MISCELLANEOUS TEST, OTHER Routine 01/03/2016 11:05 EDT documented in this encounter Results * MISCELLANEOUS TEST, OTHER (01/03/2016 11:05 EDT) Test Name SEMEN ANALYSIS W/STRICT MORPHOLOGY 01/03/2016 11:44 EDT [facility] Result See Pathology Scanned Report in PRISM. 01/05/2016 12:40 EDT [facility] Comment: (Note) Semen Analysis with Strict Morphology Semen Analysis Abstinence ? 4.0 d ? Collection Site Result: Referring Institution Study Type ? Semen ? Container Type ? 50 mL Conical ? Appearance ? Normal ? Semen Volume ? L 1.0 mL ? Reference: >=1.5 Motile/mL ? L 0.2 x10(6) ? Reference: >=6.0 Sperm/mL ? L 8.2 x10(6) ? Reference: >=15.0 Motility ? L 2 % ? Reference: >=40 Grade ?L 2.0 ? Reference: >=2.5 Motile/Ejaculate ?L 0.2 x10(6) ? Reference: >=9.0 Viscosity ? L 2.0 ? Reference: >=3.0 Agglutination ? 4.0 ? Reference: >=3.0 Supravital Stain ?L 14 % live ? Reference: >=58 Comment If reported, the specimen's appearance, volume, pH and viscosity were provided by referring personnel. Strict Criteria Sperm Morphology Strict Morph NL ?L 3.0 % ? Reference: >=4.5 Acrosom Defect ? 30.5 % ? Head Shape Abnormal ?7.0 % ? Head Size Abnormal ?0.5 % ? Midpiece Defect ?18.0 % ? Tail Defect ? 32.5 % ? Double Forms ? 8.0 % ? Multiple Defects ?0.5 % ? Germ Cells/mL ? 0.12 x10(6) ? Reference: <4.00 WBC/mL ?H 2.71 x10(6) ? Reference: <1.00 Elevated white blood cells in semen are of questionable clinical significance. RECEIVED: 01/04/2016 08:54 REPORTED: 01/04/2016 14:02 * Performing Site: [address] [place] [address] Material Crew Supervisor: Artem Winston II, M.D., Ph.D. TOPOGRAPHY UNKNOWN / Unknown 01/03/2016 11:05 EDT 01/03/2016 11:42 EDT Jerome Carlin DO CHEMISTRY & BLOOD GA S ORDERABLES Performing Organization Address City/State/[facility] Co de Phone Number [facility] [address] [place] [address] documented in this encounter Visit Diagnoses Not on filedocumented in this encounter Care Teams Bread Room Hand Relationship Specialty Start Date End Date Jerome Carlin DO [address] [place] [address] PCP - General 01/02/16 documented as of this encounter
[2024-01-02 11:28] LABS: Abs Immature Grans 0.08 10^3/uL (0.0-0.06); Absolute Basophil Count 0.05 10^3/uL (0.0-0.2); Absolute Eosinophil Count 0.07 10^3/uL (0.0-0.7); Absolute Lymphocyte Count 1.24 10^3/uL (1.2-3.4); Absolute Monocyte Count 0.34 10^3/uL (0.1-0.8); Absolute Neutrophil Count 2.81 10^3/uL (1.2-6.7); Basophils % 1.1 %; Eosinophils % 1.5 %; HCT 52.2 % (40.0-50.0); HGB 17.6 g/dL (13.5-17.5); Immature Grans % 1.7 %; MCH 27.6 pg (27.0-33.0); MCHC 33.7 % (32.0-36.0); MCV 82 fL (80-95); MPV 9.4 fL (8.0-11.0); Monocytes % 7.4 %; Neutrophils % 61.3 %; Platelet Count 203 10^3/uL (130-400); WBC 4.59 10^3/uL (4.4-10.8)
[2024-01-02 11:55] LABS: RBC 6.37 10^6/uL (4.36-5.78)
[2024-01-02 12:41] LABS: CO2 24.8 mmol/L (21.0-32.0)
[2024-01-02 12:57] LABS: ALT 37 U/L (16-63); AST 20 U/L (15-37); Albumin 3.9 g/dL (3.4-5.0); Alkaline Phosphatase 114 U/L (46-116); Anion Gap 10.2 mmol/L (3-11); BUN 20 mg/dL (7-18); Bilirubin, Direct 0.1 mg/dL (0.0-0.2); Calcium 9.4 mg/dL (8.5-10.1); Chloride 103 mmol/L (98-107); Estimated GFR 91.69 (mL/min/1.73m2); Glucose 252 mg/dL (74-106); Potassium 4.4 mmol/L (3.5-5.1); Sodium 138 mmol/L (136-145); Total Protein 7.5 g/dL (6.4-8.2)
== END 2024-01-02 02:23 | disposition home or self-care (01) ==
PROVIDERS: PCP Family Medicine; Visit Provider Family Medicine
DX: E78.5 Hyperlipidemia, unspecified (principal); E11.9 Type 2 diabetes mellitus without complications
CPT/HCPCS: 36415; 80053; 80076; 85025

== ENCOUNTER 2024-07-22 22:11 | Emergency (ER) | payer MEDICAID, SELFPAY ==
[2024-07-22 22:22] VITALS: BP 187/102; PULSE 86; RESP 18; TEMP 37.1; O2SAT 98
--- NOTE | 2024-07-22 22:39 | ED.GENADUL_ITS ---
Discharge Plan Disposition Patient Disposition: Home Condition: Good Discharge Details Clinical Impression: Hypoglycemia Primary Care Provider: Brian Bryson ED Provider: Ant Lamar Home Meds and New Rx's Prescriptions: No Action Jardiance 10 mg tablet 10 mg PO DAILY loratadine 10 MG tablet,disintegrating 10 mg PO DAILY Qty: 1 fluticasone propionate 50 mcg/actuation spray,suspension 1 spray intranasal BID Rx Instructions: administer into each nostril ibuprofen 800 MG tablet 800 mg PO Q8H PRN PRNQty: 20 1RF glipizide 10 mg tablet extended release 24hr 10 mg PO DAILY AM Patient Comments: TAKE 1 TABLET BY MOUTH EVERY DAY insulin glargine [Lantus Solostar U-100 Insulin] 100 unit/mL (3 mL) insulin pen 50 unit SUBCUT HS Patient Comments: INJECT 60 UNITS SUBCUTANEOUSLY ONCE DAILY MAXIMUM OF 80 UNITS PER DAY Discharge Instructions Instructions: Low blood sugar in people with diabetes Additional Instructions: At this time your blood sugar no longer shows any signs of hypoglycemia and has remained elevated. Please continue to monitor your diabetes closely, use the supplemental glucose additives as needed if you have a low blood sugar. Follow- up closely with your primary care provider for continued titration of your medications. If you notice any worsening of your symptoms, or any new symptoms such as vomiting, diarrhea, fever, chills, shortness of breath, chest pain, numbness, weakness, or fainting , please return immediately to the emergency dep artment for reevaluation. Please follow up with your primary care provider as soon as possible for reassessment and reevaluation. As always, it was a pleasure participating in your medical care today. Referrals: Brian Bryson MD [Primary Care Provider] - Discharge Data Discharge Date/Time-TO BE ENTERED AT DEPARTURE: 07/23/24 00:02 Discharge Physician: Ant Lamar HPI General Date/Time Provider Initiated Documentation: 07/22/24 22:13 . HPI Narrative: This is a pleasant 49-year-old male with a past medical history of type 2 diabetes, previous kidney stones, high cholesterol, who presents today fo r oscillating blood sugars. Patient is currently on 45 units of Lantus nightly, glipizide, Jentadueto (linagliptin/metformin), pioglitazone. He took his Lantus at 9 PM, and then at around 10 PM he noticed that he felt shaky and sweaty, his continuous glucose monitor demonstrated that his blood sugar was around 53. He then subsequently took 3 tablespoons of honey, 2 glucose tablets, and 1 large fluffy marshmallow. Over the next 15 to 20 minutes his symptoms resolved, but he came to the ER for further assessment. On recheck his blood sugar had come up to the 140s, and he was concerned that he may overshoot as well. Currently he states that he feels asymptomatic otherwise. No chest pain, shortness of breath, syncope, headache, vomiting or diarrhea. No dysuria or fever or chills. No other complaints at this time. He states that he has had some crashes in his blood sugar in the past, he actually had been taking a few more units of Lantus nightly, but they recently decreased because of these crashes. Related Data Home Medications ?Medication ?Instructions ?Recorded ?Confirmed ibuprofen 800 mg tablet 800 mg PO Q8H PRN PRN #20 tabs 06/04/13 05/30/22 loratadine 10 mg disintegrating 10 mg PO DAILY #1 tab-cap 07/16/13 05/30/22 tablet glipizide 10 mg tablet, extended 10 mg PO DAILY AM 07/21/20 05/30/22 release 24 hr insulin glargine 100 unit/mL (3 50 unit subcut HS 07/21/20 05/30/22 mL) subcutaneous pen (Lantus Solostar U-100 Insulin) fluticasone propionate 50 1 spray intranasal BID 02/07/22 05/30/22 mcg/actuation nasal spray,suspension empagliflozin 10 mg tablet 10 mg PO DAILY 05/16/22 05/30/22 (Jardiance) Previous Rx's ?Medication ?Instructions ?Recorded ibuprofen 800 mg tablet 800 mg PO Q8H PRN PRN #20 tabs 06/04/13 Allergies Allergy/AdvReac Type Severity Reaction Status Date / Time pseudoephedrine HCl (From AdvReac Intermediate Flu like Unverified 05/30/22 10:08 Sudafed) symptoms naproxen AdvReac Mild Pt states Unverified 05/30/22 10:08 he gets very emotional General Stated Complaint: Diabetes DANIELA: 4 Exam Narrative Exam Narrative: 1.Const: Well-nourished, Well-developed, appearing stated age 2.Eyes: PERRL, no conjunctival injection, and symmetrical lids. 3.ENT: Atraumatic external nose and ears. Moist MM. Neck: Symmetric, trachea midline, No thyromegaly. 4.CVS: +S1/S2, Peripheral pulses 2+ and equal in all extremities. Brisk capillary refill in all extremities. 5.RESP: Unlabored respiratory effort. Clear to auscultation bilaterally. No wheezes rales or rhonchi 6.GI: Soft, Nontender/Nondistended, No hepatosplenomegaly. No guarding or rebound. 7.MSK: Normocephalic/Atraumatic, Extremities w/o deformity or ttp No cyanosis or clubbing, Normal movement of all extremities 8.Skin: Warm, Dry. No rashes or lesions. 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 Sensation grossly intact, no focal neurologic deficits. 10.Psych: (AAO) x3. Appropriate mood and affect Course Vital Signs Vital signs: Vital Signs Temperature 37.1 C 07/22/24 22:22 Pulse 86 07/22/24 22:22 Respiratory Rate 18 07/22/24 22:22 Blood Pressure 187/102 H 07/22/24 22:22 Pulse Oximetry 98 07/22/24 22:22 Temperature 37.1 C 07/22/24 22:22 Pulse 86 07/22/24 22:22 Respiratory Rate 18 07/22/24 22:22 Blood Pressure 187/102 H 07/22/24 22:22 Blood Pressure Position Sitting 07/22/24 22:22 Pulse Oximetry 98 07/22/24 22:22 Oxygen Delivery Method Room Air 07/22/24 22:22 Oxygen Flow Rate 0 07/22/24 22:22 Pain Level 0 07/22/24 22:32 Medical Decision Making This is a pleasant 49-year-old male with a past medical history of typ e 2 diabetes, previous kidney stones, high cholesterol, who presents today for oscillating blood sugars. Patient is currently on 45 units of Lantus nightly, glipizide, Jentadueto (linagliptin/metformin), pioglitazone. He took his Lantus at 9 PM, and then at around 10 PM he noticed that he felt shaky and sweaty, his continuous glucose monitor demonstrated that his blood sugar was around 53. He then subsequently took 3 tablespoons of honey, 2 glucose tablets, and 1 large fluffy marshmallow. Over the next 15 to 20 minutes his symptoms resolved, but he came to the ER for further assessment. On recheck his blood sugar had come up to the 140s, and he was concerned that he may overshoot as well. Currently he states that he feels asymptomatic otherwise. No chest pain, shortness of breath, syncope, headache, vomiting or diarrhea. No dysuria or fever or chills. No other complaints at this time. He states that he has had some crashes in his blood sugar in the past, he actually had been taking a few more units of Lantus nightly, but they recently decreased because of these crashes. Exam demonstrates a well-appearing male, normal vital signs with no tachycardia, no evidence of altered mental status to suggest problematic glucose level. Fingerstick Accu-Chek is 162. Patient feels well and is otherwise asymptomatic. I suspect his problem has been resolved, however out of an abundance of caution we will monitor him for the next hour to continue to evaluate for any acute changes in his sugar status. No dysuria to suggest UTI, no fever to suggest viral infection. No ketosis in his breath or signs of profound dehydration to suspect DKA. No clinical evidence to suggest HHNK 12:20 AM On reassessment patient continues to feel well. Repeat blood sugar is around 200 at this time. No evidence of hypoglycemia. Permissible hyperglycemia is reasonable in this setting, I do not feel that additional insulin would be helpful at this time. With the patient's resolution of symptoms, and the persistent absence of hypoglycemia, I do feel that it is reasonable for discharge. Patient has continued home monitoring already and there is no indication for further monitoring here in the ED. Patient will be discharged home. Discussed red flags for which to return. I have extensively reviewed the treatment plan and discharge instructions with the patient. I have addressed all patient concerns at this time. The patient was made aware of what symptoms to monitor for that would warrant a return to the emergency department. Discussed the plan with the patient, they demonstrate verbal understanding and agreement with our assessment and plan at this time. The documentation in this chart was dictated using [employer] dictation software. Please excuse any dictation errors. Quality:SDOH Health Related Social Needs: No Data to Display PFSH All Active Problems (Updated 07/22/24 @ 23:54 by Ant Lamar DO) Hypoglycemia (Acute) Tubular adenoma of colon (Acute ~05/30/22) Diabetes mellitus type 2, controlled, without complications (Acute) Screening for colon cancer (Acute) Epidermoid cyst (Acute) Surgical History (Updated 06/28/22 @ 13:07 by Roseline Lancaster RN) History of colonoscopy with polypectomy (~05/30/22) [place] teeth extracted Family History Father Diabetes Heart disease in his early 50's d/t [place] Mother Diabetes Sister Diabetes Social History Smoking/Tobacco Use Status: Never Smoking risk assessment performed?: Yes Alcohol Intake: current Alcohol Intake frequency: a few times a month Drug use: Never Substance use type: does not use Housing: house Do you feel safe at home: Yes Do you feel safe in your relationship?: Yes
[2024-07-23 00:01] VITALS: BP 156/71; PULSE 84; RESP 18
== END 2024-07-23 00:02 | disposition home or self-care (01) ==
PROVIDERS: Emergency Provider Student in an Organized Health Care Education/Training Program; PCP Family Medicine
DX: E11.649 Type 2 diabetes mellitus with hypoglycemia without coma (principal); Z79.4 Long term (current) use of insulin; Z79.84 Long term (current) use of oral hypoglycemic drugs
CPT/HCPCS: 82962; 99283

== ENCOUNTER 2024-08-29 03:15 | Emergency (ER) | payer MEDICAID, SELFPAY ==
[2024-08-29 03:21] VITALS: BP 164/130; PULSE 80; RESP 20; TEMP 36.6; O2SAT 98
[2024-08-29 03:25] VITALS: BP 164/130; PULSE 80; RESP 20; TEMP 36.6; O2SAT 98
--- NOTE | 2024-08-29 04:55 | ED.GENADUL_ITS ---
Discharge Plan Disposition Patient Disposition: Home Condition: Good Discharge Details Chief Complaint: Diabetes Clinical Impression: Hypoglycemia Primary Care Provider: Brian Bryson ED Provider: Ant Lamar Home Meds and New Rx's Prescriptions: No Action Jardiance 10 mg tablet 10 mg PO DAILY loratadine 10 MG tablet,disintegrating 10 mg PO DAILY Qty: 1 fluticasone propionate 50 mcg/actuation spray,suspension 1 spray intranasal BID Rx Instructions: administer into each nostril ibuprofen 800 MG tablet 800 mg PO Q8H PRN PRNQty: 20 1RF glipizide 10 mg tablet extended release 24hr 10 mg PO DAILY AM Patient Comments: TAKE 1 TABLET BY MOUTH EVERY DAY insulin glargine [Lantus Solostar U-100 Insulin] 100 unit/mL (3 mL) insulin pen 50 unit SUBCUT HS Patient Comments: INJECT 60 UNITS SUBCUTANEOUSLY ONCE DAILY MAXIMUM OF 80 UNITS PER DAY Discharge Instructions Instructions: Low Blood Sugar, Adult ED Additional Instructions: At this time your blood sugar has stabilized. Please see [place] with your primary care provider and endocrinology team for further discussion on your nighttime Lantus and medication regiment. As we discussed together there may be a correlation with the Rosario's meals and your low blood sugars. Please continue to keep a food diary to help better understand your body's response to certain foods and potential causative agents for these hypoglycemic events. If you notice any worsening of your symptoms, or any new symptoms such as vomiting, diarrhea, fever, chills, shortness of breath, chest pain, numbness, weakness, or fainting , please return immediately to the emergency department for reevaluation. Please follow up with your primary care provider as soon as possible for reassessment and reevaluation. As always, it was a pleasure participating in your medical care today. Referrals: Brian Bryson MD [Primary Care Provider] - [facility] General Date/Time Provider Initiated Documentation: 08/29/24 03:18 . HPI Narrative: This is a pleasant 49-year-old male with a past medical history of type 2 diabetes, previous kidney stones, high cholesterol, who presents today for oscillating blood sugars. Patient is currently on 42 units of Lantus nightly, glipizide, Jentadueto (linagliptin/metformin), pioglitazone. About a month ago the patient was here and had an episode of hypoglycemia at night which resolved on its own with his own interventions prior to coming in. He states that he has been doing well, but usually becomes quite symptomatic whenever his blood sugar goes below 100. He states normally during the evenings his blood sugar will go down to the 80s, however this evening he noticed that it was going down to 120, then 100, then 80, and the lowest point it got was the 50s. He took multiple tablespoons of honey, glucose tablets, grapes, and other foods to help get his sugars up. When it had reached the trough of 50, he elected to come to the ER for further assessment. In the transition from home to the ER his blood sugar has been rising, and his glucose monitoring device now registers at around 120. He denies any current headache or chest pain. He denies any f ever or chills. He is concerned that his insulin regiment as well as his other medications are bringing about these troughs at night. He has no other complaints at this time. Related Data Home Medications ?Medication ?Instructions ?Recorded ?Confirmed ibuprofen 800 mg tablet 800 mg PO Q8H PRN PRN #20 tabs 06/04/13 05/30/22 loratadine 10 mg disintegrating 10 mg PO DAILY #1 tab-cap 07/16/13 05/30/22 tablet glipizide 10 mg tablet, extended 10 mg PO DAILY AM 07/21/20 05/30/22 release 24 hr insulin glargine 100 unit/mL (3 50 unit subcut HS 07/21/20 05/30/22 mL) subcutaneous pen (Lantus Solostar U-100 Insulin) fluticasone propionate 50 1 spray intranasal BID 02/07/22 05/30/22 mcg/actuation nasal spray,suspension empagliflozin 10 mg tablet 10 mg PO DAILY 05/16/22 05/30/22 (Jardiance) Previous Rx's ?Medication ?Instructions ?Recorded ibuprofen 800 mg tablet 800 mg PO Q8H PRN PRN #20 tabs 06/04/13 Allergies Allergy/AdvReac Type Severity Reaction Status Date / Time pseudoephedrine HCl (From AdvReac Intermediate Flu like Unverified 05/30/22 10:08 Sudafed) symptoms naproxen AdvReac Mild Pt states Unverified 05/30/22 10:08 he gets very emotional General Stated Complaint: Diabetes DANIELA: 3 Exam Narrative Exam Narrative: 1.Const: Well-nourished, Well-developed, appearing stated age 2.Eyes: PERRL, no conjunctival injection, and symmetrical lids. 3.ENT: Atraumatic external nose and ears. Moist MM. Neck: Symmetric, trachea midline, No thyromegaly. 4.CVS: +S1/S2, Peripheral pulses 2+ and equal in all extremities. Brisk capillary refill in all extremities. 5.RESP: Unlabored respiratory effort. Clear to auscultation bilaterally. No wheezes rales or rhonchi 6.GI: Soft, Nontender/Nondistended, No hepatosplenomegaly. No guarding or rebound. 7.MSK: Normocephalic/Atraumatic, Extremities w/o deformity or ttp No cyanosis or clubbing, Normal movement of all extremities 8.Skin: Warm, Dry. No rashes or lesions. 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 Sensation grossly intact, no focal neurologic deficits. 10.Psych: (AAO) x3. Appropriate mood and affect Course Vital Signs Vital signs: Vital Signs Temperature 36.6 C 08/29/24 03:21 Pulse 80 08/29/24 03:21 Respiratory Rate 20 08/29/24 03:21 Blood Pressure 164/130 H 08/29/24 03:21 Pulse Oximetry 98 08/29/24 03:21 Temperature 36.6 C 08/29/24 03:25 Pulse 80 08/29/24 03:25 Respiratory Rate 20 08/29/24 03:25 Blood Pressure 164/130 H 08/29/24 03:25 Blood Pressure Position Sitting 08/29/24 03:25 Pulse Oximetry 98 08/29/24 03:25 Oxygen Delivery Method Room Air 08/29/24 03:25 Oxygen Flow Rate 0 08/29/24 03:25 Medical Decision Making This is a pleasant 49-year-old male with a past medical history of type 2 diabetes, previous kidney stones, high cholesterol, who presents today f or oscillating blood sugars. Patient is currently on 42 units of Lantus nightly, glipizide, Jentadueto (linagliptin/metformin), pioglitazone. About a month ago the patient was here and had an episode of hypoglycemia at night which resolved on its own with his own interventions prior to coming in. He states that he has been doing well, but usually becomes quite symptomatic whenever his blood sugar goes below 100. He states normally during the evenings his blood sugar will go down to the 80s, however this evening he noticed that it was going down to 120, then 100, then 80, and the lowest point it got was the 50s. He took multiple tablespoons of honey, glucose tablets, grapes, and other foods to help get his sugars up. When it had reached the trough of 50, he elected to come to the ER for further assessment. In the transition from home to the ER his blood sugar has been rising, and his glucose monitoring device now registers at around 120. He denies any current headache or chest pain. He denies any fever or chills. He is concerned that his insulin regiment as well as his other medications are bringing about these troughs at night. He has no other complaints at this time. Exam demonstrates a well-appearing male, no acute distress. [id number] blood sugar is greater than 120. No evidence of hypoglycemia. Will watch and monitor the patient here for the next 1 to 2 hours to make sure he does not have a continued trough. Will recommend that he has a conversation with his family doctor about potential further decreasing of his nighttime medications in the hopes of avoiding these episodes of hypoglycemia. Obviously there is a strong goal for a lower hemoglobin A1c, however it seems that there may be an opportunity for better moderation of his tight glycemic controls. 5:22 AM Repeat Accu-Chek now shows a blood glucose level at 200. Patient remained stable and asymptomatic. Patient also discusses that he had a large Rosario's meal tonight at dinner, and also had a large Rosario's meal the last time he had his hypoglycemic episode. Potential for case correlation. I discussed with him the importance of a close conversation with his primary care provider discussing potential alterations to his insulin and nighttime medication regiment. I also discussed the importance of tight glycemic control, and keeping the A1c down, and trying to find the best balance between the 2. Patient understands. He will follow closely with his PCP. Patient stable for discharge with no evidence of repeated hypoglycemia. Discussed red flags for which to return. I have extensively reviewed the treatment plan and discharge instructions with the patient. I have addressed all patient concerns at this time. The patient was made aware of what symptoms to monitor for that would warrant a return to the emergency department. Discussed the plan with the patient, they demonstrate verbal understanding and agreement with our assessment and plan at this time. The documentation in this chart was dictated using [employer] dictation software. Please excuse any dictation errors. Quality:SDOH Health Related Social Needs: No Data to Display PFSH All Active Problems (Updated 08/29/24 @ 05:22 by Ant Lamar DO) Hypoglycemia (Acute) Tubular adenoma of colon (Acute ~05/30/22) Diabetes mellitus type 2, controlled, without complications (Acute) Screening for colon cancer (Acute) Epidermoid cyst (Acute) Surgical History (Updated 06/28/22 @ 13:07 by Roseline Lancaster RN) History of colonoscopy with polypectomy (~05/30/22) [place] teeth extracted Family History Father Diabetes Heart disease in his early 50's d/t [place] Mother Diabetes Sister Diabetes Social History Smoking/Tobacco Use Status: Never Smoking risk assessment performed?: Yes Alcohol Intake: current Alcohol Intake frequency: a few times a month Drug use: Never Substance use type: does not use Housing: house Do you feel safe at home: Yes Do you feel safe in your relationship?: Yes
== END 2024-08-29 05:27 | disposition home or self-care (01) ==
PROVIDERS: Emergency Provider Student in an Organized Health Care Education/Training Program; PCP Family Medicine
DX: E11.649 Type 2 diabetes mellitus with hypoglycemia without coma (principal); E78.5 Hyperlipidemia, unspecified; Z79.4 Long term (current) use of insulin; Z79.84 Long term (current) use of oral hypoglycemic drugs
CPT/HCPCS: 82962; 99283

== ENCOUNTER 2024-12-02 12:40 | Outpatient (REF) | payer MEDICAID, SELFPAY ==
[2024-11-29 22:20] LABS: COMMENT (LAB VIEW ONLY) 78.65 mg/dL; Microalb ug/mg Crea 9.2 ug/mg Cr
== END 2024-12-02 12:41 | disposition home or self-care (01) ==
LOC: NCHCN 12:40
PROVIDERS: PCP Family Medicine; Visit Provider Family Medicine
DX: E11.9 Type 2 diabetes mellitus without complications (principal)
CPT/HCPCS: 82043; 82570